=== PATIENT | male | born 1950 | race Caucasian/White ===

== ENCOUNTER → 2018-04-03 11:41 | Outpatient (CLI) | payer BC, MEDICARE, SELFPAY ==
[2018-04-03 17:57] LABS: Basophils % 0.4 % (0.1-2.0); Eosinophils # 0.2 K/mm3 (0.0-0.4); Eosinophils % 2.9 % (0.1-12.0); Hematocrit 41.9 % (42.0-52.0); Hemoglobin 13.5 g/dL (14.1-18.0); Lymphocytes # 1.6 K/mm3 (0.7-4.5); Lymphocytes % 27.3 K/mm3 (10-50); Mean Corpuscular HGB Conc 32.2 g/dL (31.8-35.4); Mean Corpuscular Volume 80.6 fl (80-94); Mean Platelet Volume 7.6 fl (7.4-10.4); Monocytes # 0.3 K/mm3 (0.1-1.0); Monocytes % 5.7 % (1.7-9.3); Neutrophils # 3.8 K/mm3 (1.8-7.8); Neutrophils % 63.7 % (37.0-80.0); Platelet Count 262 K/mm3 (142-424); Red Cell Distribution Width 14.8 % (11.5-17.5); White Blood Count 5.9 K/mm3 (4.8-10.8)
[2018-04-03 19:03] LABS: Hemoglobin A1C 10.1 % (0.0-7.0)
[2018-04-03 20:14] LABS: Alanine Aminotransferase 36 U/L (12-78); Albumin Level 3.5 gm/dL (3.4-5.0); Albumin/Globulin Ratio 0.8 (1.1-1.8); Alkaline Phosphatase 186 U/L (46-116); Aspartate Amino Transferase 23 U/L (15-37); Bilirubin,Total 0.3 mg/dL (0.2-1.0); Blood Urea Nitrogen 19 mg/dL (7-18); Calcium 8.7 mg/dL (8.5-10.1); Carbon Dioxide 29 mmol/L (21.0-32.0); Chloride 100 mmol/L (98-107); Chol/HDL Ratio 5.7 (1-3.5); Cholesterol 216 mg/dL (140-200); Creatinine,Serum 0.87 mg/dL (0.70-1.30); Estimated Glomerular Filt Rate 88 ml/min (>60); GFR (African American) 106 ML/MIN (>60); Globulin 4.2 gm/dl (1.3-3.2); Glucose 301 mg/dL (74-106); HDL Cholesterol 38 mg/dL (27-67); LDL Cholesterol 125 mg/dL (0-130); Sodium 136 mmol/L (136-145); T4 (Thyroxine) 6.8 ug/dl (4.7-13.3); Total Protein,Serum 7.7 gm/dL (6.4-8.2); Triglycerides 266 mg/dL (30-200); VLDL Cholesterol 53 mg/dL (0-40)
[2018-04-05 02:34] LABS: Microalbumin, Urine 169.2 ug/mL (Not Estab.)
[2018-04-06 09:48] LABS: Vitamin D 25 Hydroxy 25.9 ng/mL (30.0-100.0)
== END ==
PROVIDERS: Visit Provider Emergency Medicine
DX: E11.9 Type 2 diabetes mellitus without complications (principal)
CPT/HCPCS: 80053; 80061; 82043; 82652; 83036; 84436; 85025

== ENCOUNTER → 2018-09-18 18:09 | Outpatient (CLI) | payer BC, MEDICARE, SELFPAY ==
[2018-09-18 19:21] LABS: Basophils % 0.4 % (0.1-2.0); Eosinophils # 0.2 K/mm3 (0.0-0.4); Eosinophils % 3.8 % (0.1-12.0); Hematocrit 40.2 % (42.0-52.0); Hemoglobin 12.8 g/dL (14.1-18.0); Lymphocytes # 1.6 K/mm3 (0.7-4.5); Lymphocytes % 27.3 % (10-50); Mean Corpuscular Hemoglobin 25.9 pg (27.0-31.2); Mean Corpuscular Volume 80.8 fl (80-94); Mean Platelet Volume 7.4 fl (7.4-10.4); Monocytes # 0.3 K/mm3 (0.1-1.0); Monocytes % 5.4 % (1.7-9.3); Neutrophils # 3.8 K/mm3 (1.8-7.8); Neutrophils % 63.1 % (37.0-80.0); Platelet Count 313 K/mm3 (142-424); Red Blood Count 4.97 M/mm3 (4.60-6.20); Red Cell Distribution Width 14.8 % (11.5-17.5)
[2018-09-18 19:22] LABS: Alanine Aminotransferase 41 U/L (12-78); Albumin Level 3.4 gm/dL (3.4-5.0); Albumin/Globulin Ratio 0.8 (1.1-1.8); Alkaline Phosphatase 199 U/L (46-116); Anion Gap 14.9 mEq/L (5-15); Aspartate Amino Transferase 16 U/L (15-37); Bilirubin,Total 0.2 mg/dL (0.2-1.0); Blood Urea Nitrogen 14 mg/dL (7-18); Calcium 8.9 mg/dL (8.5-10.1); Carbon Dioxide 24 mmol/L (21.0-32.0); Chloride 102 mmol/L (98-107); Chol/HDL Ratio 5.3 (1-3.5); Cholesterol 187 mg/dL (140-200); Creatinine,Serum 0.84 mg/dL (0.70-1.30); Estimated Glomerular Filt Rate 91 ml/min (>60); Free T4 (Free Thyroxine) 0.84 ng/dl (0.76-1.46); GFR (African American) 111 ML/MIN (>60); Globulin 4.2 gm/dl (1.3-3.2); Glucose 207 mg/dL (74-106); HDL Cholesterol 35 mg/dL (27-67); LDL Cholesterol 105 mg/dL (0-130); Potassium 3.9 mmoL/L (3.5-5.1); Sodium 137 mmol/L (136-145); Thyroid Stimulating Hormone 3.55 uIU/ml (0.358-3.740); Total Protein,Serum 7.6 gm/dL (6.4-8.2); Triglycerides 235 mg/dL (30-200); VLDL Cholesterol 47 mg/dL (0-40)
[2018-09-18 19:56] LABS: Hemoglobin A1C 7.8 % (0.0-7.0)
[2018-09-21 14:00] LABS: Vitamin D 25 Hydroxy 34.7 ng/mL (30.0-100.0)
== END ==
PROVIDERS: Visit Provider Emergency Medicine
DX: F32.9 Major depressive disorder, single episode, unspecified (principal); E11.9 Type 2 diabetes mellitus without complications
CPT/HCPCS: 80053; 80061; 82652; 83036; 84439; 84443; 85025

== ENCOUNTER → 2018-09-26 08:52 | Outpatient (CLI) | payer BC, MEDICARE, SELFPAY ==
[2018-09-28 06:31] LABS: PSA, Free 0.16 ng/mL; Prostate Specific Ag 0.7 ng/mL (0.0-4.0)
== END ==
PROVIDERS: Visit Provider Emergency Medicine
DX: Z12.5 Encounter for screening for malignant neoplasm of prostate (principal); R74.8 Abnormal levels of other serum enzymes
CPT/HCPCS: 36415; 84153; 84154

== ENCOUNTER → 2019-05-28 13:54 | Outpatient (CLI) | payer BC, MEDICARE, SELFPAY ==
[2019-05-28 14:52] LABS: Basophils % 0.4 % (0.1-2.0); Eosinophils # 0.2 K/mm3 (0.0-0.4); Eosinophils % 3.3 % (0.1-12.0); Hematocrit 40.4 % (42.0-52.0); Hemoglobin 12.6 g/dL (14.1-18.0); Lymphocytes # 1.7 K/mm3 (0.7-4.5); Lymphocytes % 27.1 % (10-50); Mean Corpuscular HGB Conc 31.3 g/dL (31.8-35.4); Mean Corpuscular Hemoglobin 24.4 pg (27.0-31.2); Mean Corpuscular Volume 78.1 fl (80-94); Mean Platelet Volume 7.2 fl (7.4-10.4); Monocytes # 0.3 K/mm3 (0.1-1.0); Monocytes % 5.5 % (1.7-9.3); Neutrophils % 63.8 % (37.0-80.0); Platelet Count 305 K/mm3 (142-424); Red Blood Count 5.17 M/mm3 (4.60-6.20); Red Cell Distribution Width 15.2 % (11.5-17.5); White Blood Count 6.3 K/mm3 (4.8-10.8)
[2019-05-28 15:01] LABS: Alanine Aminotransferase 66 U/L (12-78); Albumin Level 3.4 gm/dL (3.4-5.0); Albumin/Globulin Ratio 0.8 (1.1-1.8); Anion Gap 12.2 mEq/L (5-15); Aspartate Amino Transferase 24 U/L (15-37); Bilirubin,Total 0.3 mg/dL (0.2-1.0); Blood Urea Nitrogen 13 mg/dL (7-18); Carbon Dioxide 28 mmol/L (21.0-32.0); Chloride 102 mmol/L (98-107); Cholesterol 179 mg/dL (140-200); Creatinine,Serum 0.88 mg/dL (0.70-1.30); Estimated Glomerular Filt Rate 86 ml/min (>60); GFR (African American) 105 ML/MIN (>60); Globulin 4.3 gm/dl (1.3-3.2); Glucose 223 mg/dL (74-106); Potassium 4.2 mmoL/L (3.5-5.1); Sodium 138 mmol/L (136-145); T4 (Thyroxine) 6.9 ug/dl (4.7-13.3); Thyroid Stimulating Hormone 5.66 uIU/ml (0.358-3.740); Total Protein,Serum 7.7 gm/dL (6.4-8.2); Triglycerides 194 mg/dL (30-200); VLDL Cholesterol 39 mg/dL (0-40)
[2019-05-28 15:22] LABS: Hemoglobin A1C 9.1 % (0.0-7.0)
[2019-05-28 15:35] LABS: Alkaline Phosphatase 218 U/L (46-116); HDL Cholesterol 36 mg/dL (27-67); LDL Cholesterol 104 mg/dL (0-130)
[2019-05-29 10:24] LABS: Creatinine, Urine 174.2 mg/dL (Not Estab.)
[2019-05-30 16:28] LABS: Vitamin D 25 Hydroxy 26.2 ng/mL (30.0-100.0)
[2019-05-30 16:34] LABS: Microalbumin, Urine 696.9 ug/mL (Not Estab.)
[2019-06-02 15:55] LABS: Ferritin 13 ng/mL (8-388)
[2019-06-04 08:14] LABS: Iron 32 ug/dL (38-169); UIBC 381 ug/dL (111-343)
[2019-06-04 09:46] LABS: Iron Saturation 8 % (15-55)
== END ==
PROVIDERS: Visit Provider Emergency Medicine
DX: E11.9 Type 2 diabetes mellitus without complications (principal); Z79.84 Long term (current) use of oral hypoglycemic drugs
CPT/HCPCS: 80053; 80061; 82043; 82570; 82652; 82728; 83036; 83540; 83550; 84436; 84443; 85025

== ENCOUNTER → 2019-08-17 11:01 | Outpatient (CLI) | payer BC, SELFPAY ==
[2019-08-17 11:07] LABS: Microscopic, Urine URINE MICROSCOPIC (MICROSCOPIC)
[2019-08-17 11:59] LABS: Basophils % 0.5 % (0.1-2.0); Eosinophils # 0.3 K/mm3 (0.0-0.4); Hematocrit 46.3 % (42.0-52.0); Hemoglobin 14.4 g/dL (14.1-18.0); Lymphocytes # 1.5 K/mm3 (0.7-4.5); Lymphocytes % 22.4 % (10-50); Mean Corpuscular Hemoglobin 26.3 pg (27.0-31.2); Mean Corpuscular Volume 84.5 fl (80-94); Mean Platelet Volume 7.1 fl (7.4-10.4); Monocytes # 0.3 K/mm3 (0.1-1.0); Monocytes % 4.3 % (1.7-9.3); Neutrophils # 4.6 K/mm3 (1.8-7.8); Neutrophils % 68.7 % (37.0-80.0); Platelet Count 302 K/mm3 (142-424); Red Blood Count 5.48 M/mm3 (4.60-6.20); Red Cell Distribution Width 18.2 % (11.5-17.5); White Blood Count 6.7 K/mm3 (4.8-10.8)
[2019-08-17 14:12] LABS: Appearance,Urine CLEAR (Clear); Bilirubin,Urine Negative (Negative); Blood, Urine Negative (Negative); Color,Urine YELLOW (Yellow); Glucose,Urine (UA) TRACE (Negative); Ketones,Urine Negative (Negative); Leukocyte Esterase,Urine Negative (Negative); Nitrate,Urine Negative (Negative); PH,Urine 5.5 (5.0-8.5); Protein,Urine TRACE (Negative); Specific Gravity, Urine 1.025 (1.005-1.030); Urobilinogen,Urine 0.2 EU/dl (0.2)
[2019-08-17 14:24] LABS: Bacteria,Urine Trace /lpf; Squamous Epithelial Cell,Urine Occasional #/hpf (0-5)
[2019-08-17 14:26] LABS: Albumin Level 3.3 gm/dL (3.4-5.0); Anion Gap 12.2 mEq/L (5-15); Blood Urea Nitrogen 10 mg/dL (7-18); Carbon Dioxide 29 mmol/L (21.0-32.0); Chloride 99 mmol/L (98-107); Creatinine,Serum 0.75 mg/dL (0.70-1.30); Estimated Glomerular Filt Rate 104 ml/min (>60); GFR (African American) 126 ML/MIN (>60); Glucose 174 mg/dL (74-106); Potassium 4.2 mmoL/L (3.5-5.1); Sodium 136 mmol/L (136-145)
[2019-08-17 14:41] LABS: Creatinine,Urine Random 170 mg/dL (20-320); Total Protein,Urine Random 48.4 mg/dL (0.0-11.9)
[2019-08-18 08:07] LABS: Vitamin D 25 Hydroxy 33.6 ng/mL (30.0-100.0)
[2019-08-19 11:07] LABS: Parathyroid Hormone Intact 15 pg/mL (15-65)
== END ==
PROVIDERS: Visit Provider Internal Medicine Nephrology
DX: R80.9 Proteinuria, unspecified (principal)
CPT/HCPCS: 36415; 80069; 81001; 82570; 82652; 83970; 84155; 85025

== ENCOUNTER → 2019-08-19 14:53 | Outpatient (POV) | payer BC, SELFPAY | PROVIDERS: Visit Provider Internal Medicine Nephrology | DX: Z00.00 Encounter for general adult medical examination without abnormal findings (principal) ==

== ENCOUNTER → 2020-08-11 15:17 | Outpatient (CLI) | payer BC, MEDICARE, SELFPAY ==
[2020-08-11 16:39] LABS: Basophils % 0.5 % (0.1-2.0); Eosinophils # 0.3 K/mm3 (0.0-0.4); Eosinophils % 4.6 % (0.1-12.0); Hematocrit 50.2 % (42.0-52.0); Lymphocytes # 1.8 K/mm3 (0.7-4.5); Lymphocytes % 24.2 % (10-50); Mean Corpuscular HGB Conc 33.9 g/dL (31.8-35.4); Mean Corpuscular Hemoglobin 29.3 pg (27.0-31.2); Mean Corpuscular Volume 86.6 fl (80-94); Mean Platelet Volume 8.5 fl (7.4-10.4); Monocytes # 0.3 K/mm3 (0.1-1.0); Monocytes % 4.6 % (1.7-9.3); Neutrophils # 4.9 K/mm3 (1.8-7.8); Platelet Count 266 K/mm3 (142-424); Red Cell Distribution Width 13.5 % (11.5-17.5); White Blood Count 7.4 K/mm3 (4.8-10.8)
[2020-08-11 16:45] LABS: Anion Gap 14.6 mEq/L (5-15); Blood Urea Nitrogen 12 mg/dl (9-20); Carbon Dioxide 28 mmol/L (22.0-30.0); Chloride 99 mmol/L (98-107); Potassium 4.6 mmoL/L (3.5-5.1); Sodium 137 mmol/L (136-145)
[2020-08-11 16:46] LABS: Alanine Aminotransferase 73 U/L (12-78); Albumin/Globulin Ratio 1.1 (1.1-1.8); Alkaline Phosphatase 233 U/L (38-126); Aspartate Amino Transferase 49 U/L (17-59); Bilirubin,Total 0.5 mg/dl (0.2-1.3); Calcium 9.8 mg/dl (8.4-10.2); Chol/HDL Ratio 4.7 (1-3.5); Cholesterol 213 mg/dl (140-200); Estimated Glomerular Filt Rate 112 ml/min (>60); GFR (African American) 136 ML/MIN (>60); Globulin 3.6 g/dL (1.3-3.2); Glucose 249 mg/dl (74-100); HDL Cholesterol 45 mg/dl (40-60); Total Protein,Serum 7.6 g/dl (6.3-8.2); Triglycerides 280 mg/dl (30-150); VLDL Cholesterol 56 mg/dL (0-40)
[2020-08-11 16:56] LABS: Direct LDL Cholesterol 127.17 mg/dL (100-129)
[2020-08-11 17:00] LABS: Hemoglobin A1C 8.5 % (4.0-6.0)
[2020-08-11 17:01] LABS: Free T4 (Free Thyroxine) 0.91 ng/dl (0.78-2.19)
[2020-08-11 17:03] LABS: 25-OH Vitamin D, Total 34.6 ng/mL (30-100)
[2020-08-11 17:18] LABS: Thyroid Stimulating Hormone 3.38 uIU/mL (0.465-4.68)
== END ==
PROVIDERS: Visit Provider Emergency Medicine
DX: E11.9 Type 2 diabetes mellitus without complications (principal); E55.9 Vitamin D deficiency, unspecified; Z79.84 Long term (current) use of oral hypoglycemic drugs
CPT/HCPCS: 80053; 80061; 82306; 83036; 84439; 84443; 85025; G0103

== ENCOUNTER → 2020-08-15 17:09 | Outpatient (CLI) | payer BC, MEDICARE, SELFPAY | PROVIDERS: Visit Provider Emergency Medicine | DX: Z12.5 Encounter for screening for malignant neoplasm of prostate (principal) | CPT/HCPCS: G0103 ==

== ENCOUNTER → 2020-08-24 12:19 | Outpatient (CLI) | payer BC, SELFPAY ==
--- NOTE | 2020-08-24 | CA_ITS ---
APPROVED REPORT Exam: Pharmacologic Technologist: Juanita Marti, Ht: 5 ft 11 in Wt: 312 lbs BSA: 2.55 m2 HR: 63 bpm BP: 149/80 mmHg Rhythm: NSR,FIRST DEGREE AVB,RBBB,CANNOT R/O OLD INF. ME,PVC Medical History Medical History: Diabetic ??? Noninsulin, HTN Medications: Asa,,,,, Pantoprazole,,,,, Iron,,,,, Vit D3,,,,, Vit D2,,,,, GlimepERIDE,,,,, Lisinopri/HCTZ,,,,, VenlaDFAXINE,,,,, Cardiac Risk Factors: HTN, Diabetes (non-insulin), FHX of CAD Stress Test Details Test: LEXISCAN HR Resting HR: 65 bpm Max Heart Rate (APMHR): 152 bpm Max HR Achieved: 79 bpm Target HR (85% APMHR): 129 bpm % of APMHR: 51 Recovery HR: 73 bpm BP Resting BP: 149.0/80.0 mmHg Max BP: 160.0/83.0 mmHg Recovery BP: 157.0/86.0 mmHg ECG Resting ECG: NSR,FIRST DEGREE AVB,RBBB,CANNOT R/O OLD INF. ME, PVC Medications Administered Esmolol ( mg at ) Clinical Exercise duration: 04:03 min Highest Stage Achieved: Stress ECG Conclusion DURING INFUSION OF LEXISCAN PATIENT HAD SOA,MILD NAUSEA AND MALAISE. NO CP. RARE PVC. NO SIGNIFICANT ST-T CHANGES. UNREMARKABLE LEXISCAN STRESS. MYOVIEW IMAGES REPORTED SEPARATELY. Test Summary REST . . . . . . . Sitting REST . . . . . . . Sitting REST 04:18 . . 65 . 149/ 80 . . Stage 1 01:00 . . 68 . . . . Stage 2 01:00 . . 78 . 123/ 68 . . Stage 3 01:00 . . 76 . 144/ 82 . . Stage 4 01:00 . . 72 . 155/ 82 . . Stage 4 01:03 . . 74 . 155/ 82 . Stop exercise at 04:03 RECOVERY 01:00 . . 76 . . . . RECOVERY 02:00 . . 72 . . . . RECOVERY 03:00 . . 71 . . . . RECOVERY 04:00 . . 68 . 147/ 85 . . RECOVERY 04:54 . . 69 . 160/ 83 . . Electronically signed by : Сергей Wyman, 08/25/2020 10:47:19
--- NOTE | 2020-08-24 12:19 | NM_ITS ---
APPROVED REPORT Exam: Nuclear Stress Test Indication: SOB, Obesity, HTN, DM, High cholesterol Patient Location: Outpatient Stress Tech: Ekaterina Kaia [place] Tech:Keyanna Wilson SINDYMarcia RT(R)(N) Ht: 5 ft 11 in Wt: 312 lbs HR: 63 bpm BP: 149/80 mmHg BSA: 2.55 m2 BMI: 43.5 History: SOB, Obesity, HTN, DM, High cholesterol Procedure: Patient received a 0.4 mg of intravenous Lexiscan, resting heart rate 63 bpm, resting blood pressure 149/80 mmHg, with Lexiscan maximum heart rate achived was 79 bpm which is Less than 85 resting electrocardiogram showed sinus rhythm right bundle branch block, % of the maximum predicted heart rate and blood pressure was 123/68 mmHg. With Lexiscan, patient denied any complaint of chest pain. Electrocardiogram With Lexiscan there is less than 1.[address] segment depression noted from the baseline EKG. The EKG portion of the Lexiscan is nondiagnostic. Cardiac Stress and Resting SPECT Images: Cardiac Stress and Resting SPECT images were obtained using technetium 99m Myoview 30.2 mCi stress and 10.71 mCi at rest. Gated SPECT for analysis of segmental wall motion and calculation of the ejection fraction also done. Prone images were also obtained. Cardiac prone images show uniform myocardial activity without segmental perfusion abnormality, computer derived ejection fraction is 40% left ventricle is globally hypokinetic and mildly dilated, right ventricle is mildly enlarged with normal contractility. Conclusion: 1. The EKG portion of the Lexiscan Myoview is nondiagnostic. 2. No scintigraphic evidence of reversible ischemia seen, computer derived ejection fraction 40%, left ventricle is mildly dilated and globally hypokinetic, right ventricle is mildly enlarged with normal contractility. 3. Abnormal Lexiscan Myoview study due to low ejection fraction. Electronically signed by : Сергей Wyman, 08/25/2020 10:50:47
--- NOTE | 2020-08-24 15:00 | CA_ITS ---
APPROVED REPORT EXAM: Comprehensive 2D, Doppler, and color-flow Echocardiogram Wirer Helper: Ashley Reed RVT Ht: 5 ft 11 in Wt: 312lbs BSA: 2.55 BP: 130/80 mmHg Indications: CP,HTN,GERD,SOA,DM,OBESITY 2D Dimensions LVOT 2.68 cm (M/F) 1.5-2.5 M-Mode Dimensions RVDd 4.56 cm (0.9-2.6) LA Diam 4.35 cm (1.9-4.0) LVDd 6.53 cm (3.5-5.7) Ao Diam 4.22 cm (2.0-3.7) LVDs 4.43 cm (3.5-5.7) IVSd 0.58 cm (0.6-1.1) PWd 0.80 cm (0.6-1.1) EF (Teich) 59.20% FS 32.20% EDV (Teich) 218.30 mL ESV (Teich) 89.10 mL LV Diastology E Decel Time 223.00 (160-240 msec) E/A Ratio 0.9 MED E' 4.80 (< 7 cm/sec) E'/MED E' Ratio 15.37 (>14) LAT E' 5.40 (<10 cm/sec) E/LAT E' Ratio 13.67 (>14) Mitral Valve MV E Max Jason. 74.00 (40-130 cm/s) MV A Velocity 82.00 (40-130 cm/s) E/A Ratio 0.90 MV Decel. Time 223.00 (160-240 ms) MV PHT 65.00 ms Pulmonary Valve PV Peak Velocity 81.00 (50-150 cm/s) Left Ventricle Left atrium is mildly enlarged, left ventricle is normal size, mild concentric left ventricular hypertrophy, visually estimated ejection fraction 55% with no regional wall motion abnormality, grade 1 diastolic dysfunction seen with tissue Doppler evidence of raise left atrial pressure. Right Ventricle Right atrium and right ventricle are mildly enlarged with normal contractility. Aortic Valve Aortic valve is minimally thickened and fibrosed, there is no aortic stenosis or aortic insufficiency. Mitral Valve Mitral valve leaflets are minimally thickened, there is mild mitral regurgitation. Tricuspid Valve Tricuspid valve is grossly normal, there is mild tricuspid regurgitation, tricuspid regurgitation jet velocity is inadequate for calculation of the right ventricular systolic pressure. Pulmonic Valve Pulmonic valve is poorly visualized. Great Vessels Aortic root is normal size. Pericardium No significant pericardial effusion noted. Conclusion 1. Mild biatrial enlargement, normal left ventricular size, mild concentric left ventricular hypertrophy, visually estimated ejection fraction 55% with no regional wall motion abnormality, grade 1 diastolic dysfunction seen with tissue Doppler evidence of raise left atrial pressure. 2. Mildly enlarged right ventricle with normal contractility. 3. Mild mitral and tricuspid regurgitation. 4. No significant pericardial effusion noted. Electronically signed by : Сергей Wyman, 08/25/2020 13:19:42
--- NOTE | 2020-08-24 15:05 | HMH.ITSHM ---
Current Home Medications as stated by this patient Van Yvonne or volunteer patient representative. []ASA LISINOPRIL PANTOPRAZOLE
== END ==
LOC: RAD 12:19
PROVIDERS: PCP Emergency Medicine; Visit Provider Emergency Medicine
DX: R07.9 Chest pain, unspecified (principal); R01.1 Cardiac murmur, unspecified
CPT/HCPCS: 78452; 93017; 93306; A9502; J2785

== ENCOUNTER → 2020-09-18 18:05 | Outpatient (CLI) | payer BC, SELFPAY ==
[2020-09-18 19:56] LABS: Coronavirus 19 IgG Antibody Negative (Negative); Coronavirus 19 IgM Antibody Negative (Negative)
== END ==
LOC: COVID.OUT 18:08 → LAB 18:22
PROVIDERS: PCP Emergency Medicine; Visit Provider Emergency Medicine
DX: Z01.818 Encounter for other preprocedural examination (principal); Z03.818 Encounter for observation for suspected exposure to other biological agents ruled out; I10 Essential (primary) hypertension; R40.0 Somnolence; R06.83 Snoring; E66.9 Obesity, unspecified
CPT/HCPCS: 36415; 86328; 95810

== ENCOUNTER 2020-11-22 09:09 | Day surgery (SDC) | payer BC, SELFPAY ==
[2020-11-22] VITALS (12 sets, daily range): BP systolic 99–175; BP diastolic 48–113; PULSE 66–76; RESP 16–20; TEMP 37.2; O2SAT 91–100; BMI 45.4
--- NOTE | 2020-11-22 | IR_ITS ---
APPROVED REPORT Patient Location: Outpatient Balancer: VALE Hummel RT (R) PROCEDURES Left heart catheterization Left ventriculogram Selective coronary angiogram INDICATION Dilated ventricle with cardiomyopathy, Angina pectoris Informed consent was obtained prior to the procedure. COMPLICATIONS none Estimated Blood Loss: less than 10 mls TECHNIQUE One percent lidocaine used to anesthetize the right anterior aspect of the wrist. The right radial artery was accessed via the Seldinger technique. A 6 [place]rugu[place] sheath was placed in the right radial artery. 2.5 mg of verapamil, 800 mcg of nitroglycerin, 1mg Lidocaine and 5000 U Heparin were given through the arterial sheath. The trap catheter and 6 [place]ayan EBU 3.75 guide catheter were used to perform left heart catheterization, left ventriculogram and selective coronary angiogram. At the end of the procedure the sheath was removed good hemostasis was achieved using Traclet band, patient was transferred to the postop holding area in stable condition. ANGIOGRAPHIC RESULTS The left main artery Normal The left anterior descending artery Mild luminal irregularities accompanied by JONATAN II flow The circumflex artery Nondominant with mild luminal irregularities accompanied by JONATAN II flow The right coronary artery Dominant with mild luminal irregularities accompanied by JONATAN II flow The CHEN ventriculogram reveals Dilated ventricle with reduced ejection fraction at 50% The left ventricular end-diastolic pressure Elevated at 30 mmHg IMPRESSION Mild nonflow limiting coronary disease Diffuse slow flow consistent with moderate endothelial dysfunction Dilated ventricle with mildly reduced ejection fraction Severely elevated LVEDP PLAN 1. Lasix 40 daily plus spironolactone 50 mg daily in order to decrease EDP 2. Treatment of endothelial dysfunction possibly with long-acting nitrates if symptoms persist 3. Evaluation for sleep apnea with sleep study Electronically signed by : Odilon Tarango, 11/22/2020 13:25:43
[2020-11-22 10:18] LABS: Chloride 101 mmol/L (98-107); Potassium 3.7 mmoL/L (3.5-5.1); Sodium 135 mmol/L (136-145)
[2020-11-22 10:20] LABS: Basophils % 0.4 % (0.1-2.0); Eosinophils # 0.2 K/mm3 (0.0-0.4); Eosinophils % 3.3 % (0.1-12.0); Hematocrit 48.4 % (42.0-52.0); Hemoglobin 16.3 g/dL (14.1-18.0); Lymphocytes # 1.7 K/mm3 (0.7-4.5); Mean Corpuscular HGB Conc 33.7 g/dL (31.8-35.4); Mean Corpuscular Hemoglobin 28.6 pg (27.0-31.2); Mean Corpuscular Volume 84.9 fl (80-94); Mean Platelet Volume 7.7 fl (7.4-10.4); Monocytes # 0.3 K/mm3 (0.1-1.0); Monocytes % 4.7 % (1.7-9.3); Neutrophils # 4.7 K/mm3 (1.8-7.8); Neutrophils % 67.6 % (37.0-80.0); Platelet Count 242 K/mm3 (142-424); Red Cell Distribution Width 13.4 % (11.5-17.5); White Blood Count 6.9 K/mm3 (4.8-10.8)
[2020-11-22 10:21] LABS: Anion Gap 9.7 mEq/L (5-15); Blood Urea Nitrogen 14 mg/dl (9-20); Calcium 10.2 mg/dl (8.4-10.2); Carbon Dioxide 28 mmol/L (22.0-30.0); Creatinine Clearance Estimated 75 mL/min (50-200); Estimated Glomerular Filt Rate 112 ml/min (>60); GFR (African American) 136 ML/MIN (>60); Glucose 229 mg/dl (74-100)
[2020-11-22 10:45] LABS: Coronavirus 19 IgG Antibody Negative (Negative); Coronavirus 19 IgM Antibody Negative (Negative)
== END 2020-11-22 14:39 | disposition home or self-care (01) ==
PROVIDERS: PCP Emergency Medicine; Visit Provider Internal Medicine
DX: I25.118 Atherosclerotic heart disease of native coronary artery with other forms of angina pectoris (principal); E11.9 Type 2 diabetes mellitus without complications; Z79.84 Long term (current) use of oral hypoglycemic drugs; I11.0 Hypertensive heart disease with heart failure; R94.31 Abnormal electrocardiogram [ECG] [EKG]; Z88.8 Allergy status to other drugs, medicaments and biological substances
CPT/HCPCS: 80048; 85025; 86328; 93458; 99152; C1725; C1769; J1644; Q9967

== ENCOUNTER → 2020-11-30 09:57 | Outpatient (CLI) | payer BC, SELFPAY ==
[2020-11-30 11:36] LABS: Chloride 101 mmol/L (98-107)
[2020-11-30 11:37] LABS: Potassium 4.3 mmoL/L (3.5-5.1); Sodium 136 mmol/L (136-145)
[2020-11-30 11:39] LABS: Alanine Aminotransferase 66 U/L (12-78); Anion Gap 12.3 mEq/L (5-15); Aspartate Amino Transferase 63 U/L (17-59); Bilirubin,Unconjugated 0.3 mg/dL (0.0-1.1); Blood Urea Nitrogen 20 mg/dl (9-20); Carbon Dioxide 27 mmol/L (22.0-30.0); Estimated Glomerular Filt Rate 112 ml/min (>60); GFR (African American) 136 ML/MIN (>60)
[2020-11-30 11:40] LABS: Albumin Level 4.2 g/dl (3.5-5.0); Alkaline Phosphatase 213 U/L (38-126); Bilirubin,Direct 0.1 mg/dl (0.0-0.4); Bilirubin,Indirect 0.3 mg/dL (0.0-0.9); Bilirubin,Total 0.4 mg/dl (0.2-1.3); Calcium 9.9 mg/dl (8.4-10.2); Chol/HDL Ratio 4.9 (1-3.5); Cholesterol 216 mg/dl (140-200); Glucose 250 mg/dl (74-100); HDL Cholesterol 44 mg/dl (40-60); Triglycerides 352 mg/dl (30-150); VLDL Cholesterol 70 mg/dL (0-40)
[2020-11-30 11:47] LABS: NT Pro Brain Natriuretic Pep. 13.1 pg/mL (0-125)
[2020-11-30 11:51] LABS: Direct LDL Cholesterol 118.84 mg/dL (100-129)
== END ==
PROVIDERS: Visit Provider Internal Medicine Cardiovascular Disease
DX: R06.00 Dyspnea, unspecified (principal); I25.10 Atherosclerotic heart disease of native coronary artery without angina pectoris; E11.9 Type 2 diabetes mellitus without complications; E78.5 Hyperlipidemia, unspecified; I51.89 Other ill-defined heart diseases; R94.30 Abnormal result of cardiovascular function study, unspecified; R94.31 Abnormal electrocardiogram [ECG] [EKG]; Z79.84 Long term (current) use of oral hypoglycemic drugs
CPT/HCPCS: 36415; 80048; 80061; 80076; 83880

== ENCOUNTER → 2021-02-02 18:02 | Outpatient (CLI) | payer BC, SELFPAY ==
[2021-02-02 18:41] LABS: Hemoglobin A1C 9.6 % (4.0-6.0)
== END ==
PROVIDERS: Visit Provider Emergency Medicine
DX: E11.9 Type 2 diabetes mellitus without complications (principal); Z79.84 Long term (current) use of oral hypoglycemic drugs
CPT/HCPCS: 83036

== ENCOUNTER 2021-05-14 12:57 | Emergency (ER) | payer BC, SELFPAY ==
[2021-05-14 13:15] VITALS: BP 154/86; PULSE 85; RESP 19; TEMP 36.9; O2SAT 98; BMI 45.2
[2021-05-14 13:24] LABS: Adenovirus,PCR Not Detected (NotDetected); Bordetella Pertussis Not Detected (NotDetected); Chlamydophila Pneumoniae, PCR Not Detected (NotDetected); Coronavirus 229E Not Detected (NotDetected); Coronavirus NL63 Not Detected (NotDetected); Coronavirus OC43 Not Detected (NotDetected); Coronovirus HKU1,PCR Not Detected (NotDetected); Human Metapneumovirus Not Detected (NotDetected); Influenza A, PCR Not Detected (NotDetected); Influenza AH1, 2009 Not Detected (NotDetected); Influenza AH1, PCR Not Detected (NotDetected); Influenza AH3,PCR Not Detected (NotDetected); Influenza B, PCR Not Detected (NotDetected); Mycoplasma Pneumoniae, PCR Not Detected (NotDetected); Parainfluenza 1, PCR Not Detected (NotDetected); Parainfluenza 2, PCR Not Detected (NotDetected); Parainfluenza 3, PCR Not Detected (NotDetected); Parainfluenza 4, PCR Not Detected (NotDetected); Respiratory Syncytial Virus Not Detected (NotDetected); Rhinovirus/Enterovirus Not Detected (NotDetected)
--- NOTE | 2021-05-14 13:32 | HMH.EDUTC ---
[facility] [place] Clinical Impression: Encounter for laboratory testing for COVID-19 virus Disposition: Home, Self-Care Condition on Discharge: Good Instructions: DI for COVID-19 (Suspected or Confirmed ), Coronavirus Disease 2019, Preventing the Spread of Coronavirus Discharge Instructions Additional Instructions: *Monitor Temp, Over the counter Motrin or Tylenol as directed/as needed Tylenol every 4 hours and Motrin every 6 hours (as long as your family doctor has told you that you can take it) for fever or pain. and straight to ER if unable to lower temp less than 101.0 after medication given Follow up IMMEDIATELY for new or worsening symptoms or no Noticeable improvement over the next 48-72 hours. 911 for difficulty breathing or swallowing You were tested for today for COVID19 your test result should be back in the next 24-48 hours, you may call to the [facility] to see if your test results are back in the next 48 hours [phone] [facility] hours are 9am-9pm You was given a handout with instructions for Self Quarantine and Self isolation for while you wait on test results and what to do if they are positive If you are positive the Health Dept will be contacting you also Referrals: Anatoliy Adkins MD [Primary Care Provider] - As needed Time of Disposition: 13:41 Medical Decision Making - Tobin Inquiry Pt receiving controlled substance: No Tobin was queried for this patient: No Vital Signs: 05/14/21 13:15 Temperature 98.5 F Temperature Source Oral Pulse Rate [Right Brachial] 85 Respiratory Rate 19 Blood Pressure [Right Arm] 154/86 H Blood Pressure Mean [Right Arm] 108 Blood Pressure Source [Right Arm] Automatic Cuff Blood Pressure Position [Right Arm] Sitting 02 Sat by Pulse Oximetry 98 Oxygen Delivery Method Room Air Orders (Tests/Meds): ORDERS Category Date Time Status Full Resp Panel w/COVID ([facility]) Routine Lab 05/14/21 13:14 Received [facility] [place] - General Stated complaint: covid exposure, symptoms Time Seen by Provider: 05/14/21 13:32 Mode of Arrival: Ambulatory Source of Information: Patient Limitations: No Limitations Description of Symptoms (Recalled from Triage Doc. by RN): PATIENT C/O COUGH, BODY ACHES, AND CHILLS X 4 DAYS. RECENTLY EXPOSED TO COVID HEENT Symptoms (Recalled from RN notes): Yes Resp Symptoms (Recalled from RN notes): No Skin Symptoms (Recalled from RN notes): No MS Symptoms (Recalled from RN notes): No Functional Status (Recalled from RN notes): WNL - History of Present Illness Provider Complaint: Patient state that he thinks he may have COVID State that his and daughter recently tested positive for COVID States that he has been having flu like symptoms and body aches so he came in to get tested for COVID and flu - Related Data Home Medications Medication Instructions Recorded Confirmed Aspirin [Low Dose Aspirin EC] 81 mg PO DAILY 08/16/19 04/13/21 ferrous sulfate 325 mg (65 mg 325 mg PO DAILY 08/16/19 04/13/21 iron) tablet,delayed release Furosemide [Lasix 40mg tablet] 40 mg PO DAILY 11/22/20 04/13/21 Spironolactone [Aldactone 50mg 50 mg PO DAILY 11/22/20 04/13/21 Tab] ergocalciferol (vitamin D2) 1,250 1,250 mcg PO WEEKLY cap 11/30/20 04/13/21 mcg (50,000 unit) capsule Previous Rx's Medication Instructions Recorded pantoprazole 40 mg tablet,delayed 40 mg PO DAILY #90 tab 10/26/20 release evolocumab 140 mg/mL subcutaneous 140 mg SQ Q2W #2 ml 11/30/20 pen injector metoprolol succinate 25 mg 25 mg PO DAILY #30 tab 11/30/20 tablet,extended release 24 hr glimepiride 4 mg tablet See Rx Instructions .ROUTE 01/30/21 .COMPLEX #90 tab sitagliptin 100 mg tablet 100 mg PO DAILY #30 tab 02/08/21 ergocalciferol (vitamin D2) 1,250 See Rx Instructions .ROUTE 02/16/21 mcg (50,000 unit) capsule .COMPLEX #14 cap venlafaxine 75 mg capsule,extended See Rx Instructions .ROUTE 03/06/21 release 24 hr .COMPLEX #90 cap cholecalciferol (vitamin D3) 25 See Rx
[2021-05-14 13:48] VITALS: BP 154/86; PULSE 85; RESP 19; TEMP 36.9; O2SAT 98
[2021-05-14 16:26] LABS: Coronavirus 19, PCR Detected (NotDetected)
--- NOTE | 2021-05-14 17:17 | PC.NURSE ---
ATTEMPTED TO CALL PT ABOUT COVID TEST RESULTS. NO ANSWER AND NO VOICEMAIL SET UP. WILL TRY AGAIN LATER.
--- NOTE | 2021-05-14 20:14 | PC.NURSE ---
PATIENT'S NOTIFIED OF POSITIVE COVID TEST
== END 2021-05-14 13:54 | disposition home or self-care (01) ==
PROVIDERS: Emergency Provider Nurse Practitioner; PCP Emergency Medicine
DX: U07.1 COVID-19 (principal); I10 Essential (primary) hypertension; E11.9 Type 2 diabetes mellitus without complications; K21.9 Gastro-esophageal reflux disease without esophagitis; Z79.899 Other long term (current) drug therapy
CPT/HCPCS: 87581; 87633; 87798; 99202; G0463

== ENCOUNTER → 2021-07-20 18:24 | Outpatient (CLI) | payer BC, SELFPAY ==
[2021-07-20 19:14] LABS: Hemoglobin A1C 8.5 % (4.0-6.0)
== END ==
PROVIDERS: Visit Provider Emergency Medicine
DX: E11.9 Type 2 diabetes mellitus without complications (principal); Z79.84 Long term (current) use of oral hypoglycemic drugs
CPT/HCPCS: 83036

== ENCOUNTER → 2021-12-14 11:19 | Outpatient (CLI) | payer BC, SELFPAY ==
[2021-12-17 14:00] LABS: Alanine Aminotransferase 23 U/L (12-78); Albumin/Globulin Ratio 1.3 (1.1-1.8); Alkaline Phosphatase 141 U/L (38-126); Anion Gap 13.5 mEq/L (5-15); Aspartate Amino Transferase 28 U/L (17-59); Bilirubin,Total 0.4 mg/dl (0.2-1.3); Blood Urea Nitrogen 16 mg/dl (9-20); Calcium 9.1 mg/dl (8.4-10.2); Carbon Dioxide 24 mmol/L (22.0-30.0); Chloride 103 mmol/L (98-107); Chol/HDL Ratio 4.9 (1-3.5); Cholesterol 175 mg/dl (140-200); Estimated Glomerular Filt Rate 112 ml/min (>60); GFR (African American) 135 ML/MIN (>60); Globulin 3.2 g/dL (1.3-3.2); Glucose 277 mg/dl (74-100); HDL Cholesterol 36 mg/dl (40-60); Potassium 4.5 mmoL/L (3.5-5.1); Sodium 136 mmol/L (136-145); Total Protein,Serum 7.2 g/dl (6.3-8.2); Triglycerides 224 mg/dl (30-150); VLDL Cholesterol 45 mg/dL (0-40)
[2021-12-17 14:04] LABS: Hemoglobin A1C 8.8 % (4.0-6.0)
[2021-12-17 14:11] LABS: Direct LDL Cholesterol 103.12 mg/dL (100-129)
[2021-12-17 14:17] LABS: 25-OH Vitamin D, Total 23.7 ng/mL (30-100); Free T4 (Free Thyroxine) 1.24 ng/dl (0.78-2.19)
[2021-12-17 14:32] LABS: Thyroid Stimulating Hormone 3.74 uIU/mL (0.465-4.68)
== END ==
PROVIDERS: Visit Provider Emergency Medicine
DX: E11.9 Type 2 diabetes mellitus without complications (principal); E55.9 Vitamin D deficiency, unspecified; Z79.4 Long term (current) use of insulin
CPT/HCPCS: 80053; 80061; 82306; 83036; 84439; 84443

== ENCOUNTER → 2022-02-08 16:35 | Outpatient (CLI) | payer BC, SELFPAY ==
[2022-02-08 13:08] LABS: Basophils % 0.7 % (0.1-2.0); Eosinophils # 0.2 K/mm3 (0.0-0.4); Eosinophils % 3.5 % (0.1-12.0); Hematocrit 35.5 % (42.0-52.0); Hemoglobin 11.4 g/dL (14.1-18.0); Lymphocytes # 1.4 K/mm3 (0.7-4.5); Lymphocytes % 21.1 % (10-50); Mean Corpuscular Hemoglobin 21.9 pg (27.0-31.2); Mean Corpuscular Volume 68.5 fl (80-94); Monocytes # 0.3 K/mm3 (0.1-1.0); Monocytes % 4.7 % (1.7-9.3); Neutrophils # 4.5 K/mm3 (1.8-7.8); Platelet Count 306 K/mm3 (142-424); Red Blood Count 5.19 M/mm3 (4.60-6.20); Red Cell Distribution Width 17.3 % (11.5-17.5); White Blood Count 6.5 K/mm3 (4.8-10.8)
[2022-02-08 13:13] LABS: Chloride 104 mmol/L (98-107); Potassium 3.9 mmoL/L (3.5-5.1); Sodium 137 mmol/L (136-145)
[2022-02-08 13:15] LABS: Alanine Aminotransferase 21 U/L (12-78); Amylase 33 U/L (30-110); Aspartate Amino Transferase 25 U/L (17-59); Blood Urea Nitrogen 11 mg/dl (9-20); Estimated Glomerular Filt Rate 134 ml/min (>60); GFR (African American) 162 ML/MIN (>60)
[2022-02-08 13:16] LABS: Albumin Level 3.8 g/dl (3.5-5.0); Albumin/Globulin Ratio 1.2 (1.1-1.8); Alkaline Phosphatase 113 U/L (38-126); Anion Gap 9.9 mEq/L (5-15); Bilirubin,Total 0.5 mg/dl (0.2-1.3); Calcium 9.3 mg/dl (8.4-10.2); Carbon Dioxide 27 mmol/L (22.0-30.0); Globulin 3.1 g/dL (1.3-3.2); Glucose 233 mg/dl (74-100); Lipase 53 U/L (23-300); Total Protein,Serum 6.9 g/dl (6.3-8.2)
[2022-02-08 13:21] LABS: C-Reactive Protein 4.8 mg/L (0-4)
[2022-02-08 16:48] LABS: Erythrocyte Sedimentation Rate 17 mm/hr (0-20)
== END ==
PROVIDERS: Visit Provider Emergency Medicine
DX: E66.9 Obesity, unspecified (principal); R10.9 Unspecified abdominal pain; Z68.41 Body mass index [BMI] 40.0-44.9, adult
CPT/HCPCS: 80053; 82150; 83690; 85025; 85651; 86140

== ENCOUNTER → 2022-03-08 16:06 | Outpatient (CLI) | payer BC, SELFPAY ==
[2022-03-08 14:46] LABS: Hemoglobin A1C 8.9 % (4.0-6.0)
[2022-03-08 15:08] LABS: Vitamin B12 224 pg/mL (239-931)
[2022-03-08 15:48] LABS: Iron 25 ug/dL (49-181)
[2022-03-08 15:57] LABS: Total Iron Binding Capacity 454 ug/dL (261-462)
[2022-03-08 16:24] LABS: Ferritin 6.32 ng/ml (17.9-464)
== END ==
PROVIDERS: Visit Provider Emergency Medicine
DX: E11.9 Type 2 diabetes mellitus without complications (principal); Z79.4 Long term (current) use of insulin
CPT/HCPCS: 82607; 82728; 83036; 83540; 83550

== ENCOUNTER 2022-06-01 08:12 | Emergency (ER) | payer BC, SELFPAY ==
[2022-06-01 08:20] VITALS: BP 165/64; PULSE 53; RESP 18; TEMP 36.7; O2SAT 98; BMI 41.1
--- NOTE | 2022-06-01 09:05 | HMH.EDUTC ---
[facility] [place]ression: Bakers cyst Qualifiers: Laterality: right Qualified Code(s): M71.21 - Synovial cyst of popliteal space [Wesley], right knee Disposition: Home, Self-Care Condition on Discharge: Good Instructions: DI for Wesley Cyst Additional Instructions: follow up with ortho follow up with pcp monitor glucose while on steroids if symptoms worsen return or be seen in ed Referrals: Anatoliy Adkins MD [Primary Care Provider] - Time of Disposition: 10:38 Medical Decision Making - Tobin Inquiry Pt receiving controlled substance: No Vital Signs: 06/01/22 08:20 06/01/22 09:09 Temperature 98.0 F 98.0 F Temperature Source Oral Pulse Rate 53 L Pulse Rate [Right Brachial] 53 L Respiratory Rate 18 18 Blood Pressure 165/64 H Blood Pressure [Right Arm] 165/64 H Blood Pressure Mean [Right Arm] 97 Blood Pressure Source [Right Arm] Automatic Cuff Blood Pressure Position [Right Arm] Sitting 02 Sat by Pulse Oximetry 98 Oxygen Delivery Method Room Air [facility] [place] - General Chief complaint: Urgent [facility] Stated complaint: Pain in RT leg Time Seen by Provider: 06/01/22 09:07 Mode of Arrival: Ambulatory Source of Information: Patient Limitations: No Limitations Description of Symptoms (Recalled from Triage Doc. by RN): PATIENT C/O RIGHT LEG PAIN X 1 WEEK, BUT STARTED HURTING WORSE YESTERDAY. HE REPORTS THE PAIN BEING MAINLY IN HIS CALF, AND AT TIMES RADIATES INTO THIGH. NO KNOWN INJURY HEENT Symptoms (Recalled from RN notes): No Resp Symptoms (Recalled from RN notes): No Skin Symptoms (Recalled from RN notes): No MS Symptoms (Recalled from RN notes): Yes Functional Status (Recalled from RN notes): WNL - History of Present Illness Provider Complaint: 72 yr old male presents for pain in rt calf. pt states the pain starts in his calf and radiates up leg and now pain worse with walking. pt states [place] and [place] 8 hours to work. - Related Data Home Medications Medication Instructions Recorded Confirmed Aspirin [Low Dose Aspirin EC] 81 mg PO DAILY 08/16/19 03/08/22 Previous Rx's Medication Instructions Recorded evolocumab 140 mg/mL subcutaneous 140 mg SQ Q2W #2 ml 11/30/20 pen injector metoprolol succinate 25 mg 25 mg PO DAILY #30 tab 11/30/20 tablet,extended release 24 hr glimepiride 4 mg tablet See Rx Instructions .ROUTE 01/30/21 .COMPLEX #90 tab sitagliptin 100 mg tablet See Rx Instructions .ROUTE 05/28/21 .COMPLEX #90 tab canagliflozin 300 mg tablet 300 mg PO DAILY #30 tab 07/31/21 metformin 1,000 mg tablet 1,000 mg PO BID #60 tab 07/31/21 hydrochlorothiazide 25 mg tablet 25 mg PO DAILY #90 tab 10/02/21 venlafaxine 75 mg capsule,extended See Rx Instructions .ROUTE 10/24/21 release 24 hr .COMPLEX #90 cap pantoprazole 40 mg tablet,delayed 40 mg PO DAILY #90 tab 12/14/21 release insulin glargine 100 unit/mL (3 10 unit SQ HS #15 ml 01/03/22 mL) subcutaneous pen cefdinir 300 mg capsule 300 mg PO BID #20 cap 02/08/22 metronidazole 500 mg tablet 500 mg PO TID #30 tab 02/08/22 cholecalciferol (vitamin D3) 25 See Rx Instructions .ROUTE 03/19/22 mcg (1,000 unit) capsule .COMPLEX #30 each ergocalciferol (vitamin D2) 1,250 1,250 mcg PO WEEKLY #12 cap 03/19/22 mcg (50,000 unit) capsule peg 3350-electrolytes 236 240 ml PO Q10M #4000 ml 05/14/22 gram-22.74 gram-6.74 gram-5.86 gram solution lisinopril 40 mg tablet 40 mg PO DAILY #90 tab 05/31/22 Allergies Allergy/AdvReac Type Severity Reaction Status Date / Time atorvastatin [From Lipitor] AdvReac Severe Verified 03/08/22 10:45 rosuvastatin [From Crestor] AdvReac Severe Verified 03/08/22 10:45 - Worker's Comp Is this a Worker's Comp case?: No [facility] History - Hepatitis A Screen Attestation statement:: This patient has been screened for Hepatitis A risk factors. I have reviewed the patient's past medical history: Yes Medical History: Reports:: Diabetes Mellitus Type 2, Gas
[2022-06-01 09:09] VITALS: BP 165/64; PULSE 53; RESP 18; TEMP 36.7; O2SAT 98
--- NOTE | 2022-06-01 10:00 | CA_ITS ---
FINAL REPORT TECHNIQUE: Right lower extremity venous duplex was performed with augmentation and compression. CLINICAL HISTORY: pain,decrease pulse, driving in car for 8 hours FINDINGS: Proper flow is seen throughout the deep venous system. There is no evidence of deep venous thrombosis. There is a 2 cm Wesley's cyst. IMPRESSION: No deep venous thrombosis in the right lower extremity. Reviewed, Interpreted and Dictated by Aba Lopez MD Transcribed by Sylvie Barone Authenticated and [facility]
== END 2022-06-01 10:51 | disposition home or self-care (01) ==
PROVIDERS: Emergency Provider Nurse Practitioner Family; PCP Emergency Medicine
DX: M66.0 Rupture of popliteal cyst (principal)
CPT/HCPCS: 93971; 96372; 99213; G0463

== ENCOUNTER → 2022-06-21 11:27 | Outpatient (CLI) | payer BC, MEDICARE, SELFPAY ==
--- NOTE | 2022-06-21 11:37 | XR_ITS ---
FINAL REPORT CLINICAL HISTORY: knee pain FINDINGS: Three views of the right knee reveal no evidence of acute fracture or dislocation. There is chronic deformity of the distal femur consistent with a chronic fracture. There are mild degenerative changes. There is no evidence of joint effusion. No localized soft tissue abnormality is identified. IMPRESSION: Mild degenerative change. Reviewed, Interpreted and Dictated by Geoff Liu III, MD Transcribed by Jeffery Zuniga Authenticated and [facility]
== END ==
PROVIDERS: PCP Emergency Medicine; Visit Provider Orthopaedic Surgery
DX: M25.561 Pain in right knee (principal)
CPT/HCPCS: 73562

== ENCOUNTER → 2022-07-26 14:47 | Outpatient (CLI) | payer MEDICARE, SELFPAY ==
[2022-07-26 14:21] LABS: Basophils % 0.6 % (0.1-2.0); Eosinophils # 0.3 K/mm3 (0.0-0.4); Eosinophils % 3.8 % (0.1-12.0); Hematocrit 37.8 % (42.0-52.0); Hemoglobin 12.5 g/dL (14.1-18.0); Lymphocytes # 1.5 K/mm3 (0.7-4.5); Lymphocytes % 22.6 % (10-50); Mean Corpuscular HGB Conc 32.9 g/dL (31.8-35.4); Mean Corpuscular Hemoglobin 24.9 pg (27.0-31.2); Mean Corpuscular Volume 75.6 fl (80-94); Mean Platelet Volume 8.3 fl (7.4-10.4); Monocytes # 0.3 K/mm3 (0.1-1.0); Neutrophils # 4.6 K/mm3 (1.8-7.8); Neutrophils % 68.1 % (37.0-80.0); Platelet Count 264 K/mm3 (142-424); Red Cell Distribution Width 16.5 % (11.5-17.5); White Blood Count 6.8 K/mm3 (4.8-10.8)
[2022-07-26 14:24] LABS: Alanine Aminotransferase 65 U/L (12-78); Albumin Level 3.5 g/dl (3.5-5.0); Albumin/Globulin Ratio 1.1 (1.1-1.8); Alkaline Phosphatase 266 U/L (38-126); Anion Gap 15.3 mEq/L (5-15); Aspartate Amino Transferase 48 U/L (17-59); Bilirubin,Total 0.2 mg/dl (0.2-1.3); Blood Urea Nitrogen 13 mg/dl (9-20); Calcium 8.7 mg/dl (8.4-10.2); Carbon Dioxide 27 mmol/L (22.0-30.0); Chloride 100 mmol/L (98-107); Chol/HDL Ratio 4.5 (1-3.5); Cholesterol 176 mg/dl (140-200); Estimated Glomerular Filt Rate 133 ml/min (>60); GFR (African American) 161 ML/MIN (>60); Globulin 3.1 g/dL (1.3-3.2); Glucose 215 mg/dl (74-100); HDL Cholesterol 39 mg/dl (40-60); Potassium 4.3 mmoL/L (3.5-5.1); Sodium 138 mmol/L (136-145); Total Protein,Serum 6.6 g/dl (6.3-8.2); Triglycerides 165 mg/dl (30-150); VLDL Cholesterol 33 mg/dL (0-40)
[2022-07-26 14:35] LABS: Direct LDL Cholesterol 110.57 mg/dL (100-129)
[2022-07-26 14:41] LABS: 25-OH Vitamin D, Total 26.6 ng/mL (30-100)
[2022-07-26 14:46] LABS: Creatinine,Urine Random 34 mg/dL (Not Estab.); Hemoglobin A1C 9.1 % (4.0-6.0); Microalbumin/Creatinine Ratio 909.4
[2022-07-26 14:54] LABS: Thyroid Stimulating Hormone 3.86 uIU/mL (0.465-4.68)
== END ==
PROVIDERS: PCP Student in an Organized Health Care Education/Training Program; Visit Provider Student in an Organized Health Care Education/Training Program
DX: E11.9 Type 2 diabetes mellitus without complications (principal); I10 Essential (primary) hypertension; E55.9 Vitamin D deficiency, unspecified; Z79.4 Long term (current) use of insulin
CPT/HCPCS: 80053; 80061; 82043; 82306; 82570; 83036; 84443; 85025

== ENCOUNTER → 2023-07-31 07:20 | Outpatient (CLI) | payer MEDICARE, SELFPAY ==
--- NOTE | 2023-07-31 07:20 | NM_ITS ---
APPROVED REPORT Exam: Nuclear Stress Test Indication: chest pain..soa..fatigue..high bp..daibetes Patient Location: Outpatient Stress Tech: Shelby Houston [place] Tech:VALE Patton RT(R)(N) Ht: 5 ft 11 in Wt: 310 lbs HR: 68 bpm BP: 167/89 mmHg BSA: 2.54 m2 Rhythm: NSR TID: 1.22 BMI: 43.2 History: chest pain..soa..fatigue, hypertension, diabetes Procedure: Patient received 0.4 mg of intravenous Lexiscan, resting heart rate 68 bpm, resting blood pressure 167/89 mmHg, with Lexiscan maximum heart rate achieved was 75 bpm which is 85 % of the maximum predicted heart rate and blood pressure was 167/89 mmHg. With Lexiscan, patient denied any complaint of chest pain. The patient was not able to lay on his abdomen for prone imaging. Resting and stress imaging in supine position demonstrate a large sized, moderate, Cardiac Stress and Resting SPECT Images: Cardiac Stress and Resting SPECT images were obtained using technetium 99m Myoview 32.9 mCi stress and 10.97 mCi at rest. The patient could not lie on his abdomen. Therefore, prone stress imaging could not be performed. This may affect the diagnostic interpretation of the study findings. Resting and stress imaging in supine positions demonstrate a large sized, moderate, partially reversible perfusion defect in the inferior and inferolateral LV kelley. There is increased transient ischemic dilatation ratio (TID 1.22), suggestive of multivessel disease or balanced ischemia. Gated imaging demonstrates mild reduction in global LV systolic function. There is moderate hypokinesis of the basal inferior LV wall. LVEF is calculated at 49%. Conclusion: Large sized, moderate, partially reversible perfusion defect in the inferior and inferolateral LV kelley. Findings are suggestive of partial reversible ischemia. There is increased transient ischemic dilatation ratio (TID 1.22), suggestive of multivessel disease or balanced ischemia. Gated imaging demonstrates mild reduction in global LV systolic function. There is moderate hypokinesis of the basal inferior LV wall. LVEF is calculated at 49%. Electronically signed by : Genet Keith MD 08/03/2023 22:24:21
--- NOTE | 2023-07-31 08:34 | CA_ITS ---
APPROVED REPORT EXAM: Comprehensive 2D, Doppler, and color-flow Echocardiogram Assembler Ping Pong Table: Ashley Reed RVT Ht: 5 ft 11 in Wt: 310lbs BSA: 2.54 BP: 186/88 mmHg Indications: SOA,ABN EKG,CP,DM,HTN,HLD,FATIGUE,OBESITY TDS-PT BODY HABITUS 2D Dimensions LVOT 2.42 cm (M/F) 1.5-2.5 LA Volume 82.30 mL LA Volume Index 32.40 mL/m2 (M/F) 16-34 M-Mode Dimensions RVDd 5.50 cm (0.9-2.6) LA Diam 4.10 cm (1.9-4.0) LVDd 5.32 cm (3.5-5.7) Ao Diam 4.33 cm (2.0-3.7) LVDs 3.76 cm (3.5-5.7) IVSd 1.52 cm (0.6-1.1) PWd 1.12 cm (0.6-1.1) EF (Teich) 55.80% FS 29.30% EDV (Teich) 136.50 mL ESV (Teich) 60.40 mL LV Diastology E Decel Time 150.00 (160-240 msec) E/A Ratio 0.9 MED E' 4.40 (< 7 cm/sec) E'/MED E' Ratio 19.82 (>14) LAT E' 5.60 (<10 cm/sec) E/LAT E' Ratio 15.57 (>14) Aortic Valve AO Peak GR. 9.00 mmHg Mitral Valve MV E Max Jason. 87.00 (40-130 cm/s) MV A Velocity 102.00 (40-130 cm/s) E/A Ratio 0.85 MV Decel. Time 150.00 (160-240 ms) MV PHT 44.00 ms Pulmonary Valve PV Peak Velocity 81.00 (50-150 cm/s) Left Ventricle The left ventricle is normal size. The left ventricular systolic function is normal. The left ventricular ejection fraction is within the normal range. There is increased LV wall thickness. The septum is asynchronous. No other regional wall motion abnormalities are noted. Diastolic function is indeterminate. LVEF is 55%. Right Ventricle The right ventricle is mildly dilated. The right ventricular systolic function is normal. Atria The left atrium size is normal. The right atrium size is normal. There is no Doppler evidence of interatrial shunt. Aortic Valve The aortic valve is mildly thickened. There is no aortic valvular stenosis. Trace aortic regurgitation. Mitral Valve The mitral valve leaflets are mildly thickened. No evidence of mitral valve stenosis. Trace mitral regurgitation. Tricuspid Valve The tricuspid valve leaflets are thin and pliable. Trace tricuspid regurgitation. There is insufficient TR jet to estimate RVSP. Pulmonic Valve The pulmonary valve is normal in structure. Trace pulmonic regurgitation. Great Vessels The aortic root is normal in size. The ascending aorta is normal in size. IVC is normal in size and collapses >50% with inspiration. Other Information Study Quality: Fair Conclusion Normal biventricular systolic function. Mild RV dilation. Asynchronous septum. No significant valvular stenosis or regurgitation. Electronically signed by : Genet Keith MD 08/02/2023 21:54:27
--- NOTE | 2023-07-31 08:57 | CA_ITS ---
APPROVED REPORT Exam: Pharmacologic Technologist: Shelby Calles, Ht: 5 ft 11 in Wt: 310 lbs BSA: 2.54 m2 HR: 62 bpm BP: 167/89 mmHg Rhythm: NSR Medical History Medications: Amlodipine,,,,, Aspirin,,,,, Trazadone,,,,, Pantoprazole,,,,, Metoprolol Succinate,,,,, Glimepiride,,,,, Vit D3,,,,, Venlafaxine,,,,, SilDENAFIL,,,,, Vit D2,,,,, Evolocumab,,,,, INSULIN GLARGINE,,,,, Stress Test Details Test: LEXISCAN Reason for pharmacologic stress test: physical limitation. HR Resting HR: 68 bpm Max Heart Rate (APMHR): 149 bpm Max HR Achieved: 75 bpm Target HR (85% APMHR): 127 bpm % of APMHR: 50 Recovery HR: 71 bpm BP Resting BP: 167.0/89.0 mmHg Max BP: 167.0/89.0 mmHg Recovery BP: 161.0/94.0 mmHg ECG Resting ECG: NSR, first-degree AVB, RBBB, PVC, PAC, cannot R/O old inferior MT Stress ECG: No significant ST changes Arrhythmia: PACs, PVCs Clinical Exercise duration: 03:50 min Highest Stage Achieved: Exercise capacity: 1.0 METs Stress ECG Conclusion Symptoms: mild head discomfort. No CP. Arrhythmias/Ectopy: Occasional PAC, PVC ST-T Changes: No significant ST changes. Conclusion: Unremarkable Lexiscan stress. Myoview images reported separately. Test Summary REST . . . . . . . Resting REST 04:56 . . 68 . 167/ 89 . . Stage 1 01:00 . . 73 . . . . Stage 2 01:00 . . 72 . . . . Stage 3 01:00 . . 70 . 154/ 84 . . Stage 4 00:50 . . 70 . 162/ 86 . Stop exercise at 03:50 RECOVERY 01:00 . . 72 . 162/ 81 . . RECOVERY 02:00 . . 69 . 162/ 81 . . RECOVERY 03:00 . . 71 . 162/ 81 . . RECOVERY 03:22 . . 70 . 161/ 94 . . Electronically signed by : Genet Keith MD 08/03/2023 22:20:47
== END ==
LOC: RAD 07:20
PROVIDERS: PCP Emergency Medicine; Visit Provider Nurse Practitioner
DX: E78.5 Hyperlipidemia, unspecified (principal); I10 Essential (primary) hypertension; I25.10 Atherosclerotic heart disease of native coronary artery without angina pectoris; I51.89 Other ill-defined heart diseases; R60.0 Localized edema; R94.30 Abnormal result of cardiovascular function study, unspecified; R94.31 Abnormal electrocardiogram [ECG] [EKG]; R06.09 Other forms of dyspnea
CPT/HCPCS: 78452; 93017; 93306; A9502; J2785

== ENCOUNTER 2023-08-02 17:34 | Emergency (ER) | payer MEDICARE, SELFPAY ==
[2023-08-02 17:35] VITALS: BP 169/96; PULSE 87; RESP 18; TEMP 36.8; O2SAT 98; BMI 43.2
--- NOTE | 2023-08-02 17:47 | EXP.UTC ---
Discharge Plan Disposition Patient Disposition: Home, Self-Care Condition: Good Prescriptions Prescriptions: New azithromycin 250 mg tablet See Rx Instructions .ROUTE .COMPLEX Qty: 6 0RF Rx Instructions: For 250 mg dose pack: take 500 mg today (day 1), then 250 mg for 4 days (days 2-5). Stop cholesterol medication while taking this medication. benzonatate 200 mg capsule 200 mg PO TID PRN (Reason: cough) Qty: 30 0RF No Action sildenafil (pulm.hypertension) 20 mg tablet See Rx Instructions .ROUTE .COMPLEX Qty: 20 2RF Rx Instructions: Take 1 to 2 po as needed; cholecalciferol (vitamin D3) 25 mcg (1,000 unit) capsule See Rx Instructions .ROUTE .COMPLEX Qty: 30 2RF Dose Instruction: TAKE ONE CAPSULE BY MOUTH DAILY Rx Instructions: TAKE ONE CAPSULE BY MOUTH DAILY insulin glargine [Lantus Solostar U-100 Insulin] 100 unit/mL (3 mL) insulin pen 10 unit SQ HS Qty: 15 2RF pantoprazole 40 mg tablet,delayed release (DR/EC) 40 mg PO DAILY Qty: 90 3RF losartan-hydrochlorothiazide 100-25 mg tablet 1 tab PO DAILY Qty: 30 3RF Repatha SureClick 140 mg/mL pen injector 140 mg SQ Q2W Qty: 2 5RF glimepiride 4 mg tablet See Rx Instructions .ROUTE .COMPLEX Qty: 90 0RF Dose Instruction: TAKE 1 TABLET BY MOUTH ONCE A DAY WITH BREAKFAST. Rx Instructions: TAKE 1 TABLET BY MOUTH ONCE A DAY WITH BREAKFAST. trazodone 50 mg tablet See Rx Instructions .ROUTE .COMPLEX Qty: 30 1RF Dose Instruction: TAKE ONE TABLET BY MOUTH NIGHTLY AT BEDTIME Rx Instructions: TAKE ONE TABLET BY MOUTH NIGHTLY AT BEDTIME metoprolol succinate 25 mg tablet extended release 24 hr See Rx Instructions .ROUTE .COMPLEX Qty: 30 5RF Dose Instruction: TAKE ONE TABLET BY MOUTH DAILY Rx Instructions: TAKE ONE TABLET BY MOUTH DAILY Clenpiq 10 mg-3.5 gram- 12 gram/175 mL solution 175 ml PO DAILY Qty: 350 0RF Rx Instructions: take first dose at 5-9PM evening before colonoscopy; 2nd dose the next day approximately 5 hrs before colonoscopy peg 3350-electrolytes [Golytely] 236-22.74-6.74 -5.86 gram recon soln 240 ml PO Q10M Qty: 4000 0RF Rx Instructions: until fecal effluent is clear venlafaxine 75 mg capsule,extended release 24hr See Rx Instructions .ROUTE .COMPLEX Qty: 90 0RF Dose Instruction: Take 1 capsule at bedtime for Anxiety Rx Instructions: Take 1 capsule at bedtime for Anxiety ergocalciferol (vitamin D2) 1,250 mcg (50,000 unit) capsule See Rx Instructions .ROUTE .COMPLEX Qty: 12 0RF Dose Instruction: TAKE 1 CAPSULE BY MOUTH WEEKLY Rx Instructions: TAKE 1 CAPSULE BY MOUTH WEEKLY amlodipine 5 mg tablet See Rx Instructions .ROUTE .COMPLEX Qty: 30 0RF Dose Instruction: TAKE 1 TABLET BY MOUTH DAILY Rx Instructions: TAKE 1 TABLET BY MOUTH DAILY potassium chloride 10 mEq tablet,ER particles/crystals See Rx Instructions .ROUTE .COMPLEX Qty: 90 0RF Dose Instruction: TAKE 1 TABLET BY MOUTH DAILY Rx Instructions: TAKE 1 TABLET BY MOUTH DAILY aspirin 81 mg tablet,delayed release (DR/EC) See Rx Instructions .ROUTE .COMPLEX Qty: 90 0RF Dose Instruction: TAKE 1 TABLET BY MOUTH EVERY DAY Rx Instructions: TAKE 1 TABLET BY MOUTH EVERY DAY lisinopril 40 mg tablet 40 mg PO DAILY Referrals Follow up/Referrals: Anatoliy Adkins MD [Primary Care Provider] - See instructions Activity Restrictions/Add. Instructions Additional Instructions/Restrictions: Take medication as prescribed. Take allergy medication daily. If symptoms persist or worsen, follow up with PCP or return to the [facility]. Clinical Impressions Clinical Impression: Upper respiratory tract infection Qualifiers: URI type: unspecified URI Qualified Code(s): J06.9 - Acute upper respiratory infection, unspecified Instructions Patient Instructions: DI for Viral Upper Respiratory Infe
[2023-08-02 18:10] VITALS: BP 169/96; PULSE 87; RESP 18; TEMP 36.8; O2SAT 98
== END 2023-08-02 18:09 | disposition home or self-care (01) ==
PROVIDERS: Emergency Provider Nurse Practitioner Family; PCP Emergency Medicine
DX: R05.1 Acute cough (principal); J06.9 Acute upper respiratory infection, unspecified; I11.9 Hypertensive heart disease without heart failure; I25.10 Atherosclerotic heart disease of native coronary artery without angina pectoris; E11.9 Type 2 diabetes mellitus without complications; E78.5 Hyperlipidemia, unspecified; G47.30 Sleep apnea, unspecified; E55.9 Vitamin D deficiency, unspecified; F41.9 Anxiety disorder, unspecified; F32.A Depression, unspecified; Z79.4 Long term (current) use of insulin
CPT/HCPCS: 99212; 99214; G0463

== ENCOUNTER 2023-10-17 08:07 | Day surgery (SDC) | payer MEDICARE, SELFPAY ==
[2023-10-15 10:06] VITALS: BMI 43.4
[2023-10-17] VITALS (13 sets, daily range): BP systolic 135–183; BP diastolic 69–103; PULSE 53–85; RESP 16–18; TEMP 36.1–36.6; O2SAT 95–100
--- NOTE | 2023-10-17 08:41 | HMH.SCOPE ---
Procedure: Date: 10/17/23 Patient Date of :: 1950 Procedure Performed:: Total colonoscopy to terminal ileum with endoscopic removal of polypoid mass in sigmoid colon Indications:: Patient is a 73-year-old male with a history of anxiety, depression, coronary artery disease, hyperlipidemia, GERD, obstructive sleep apnea, diabetes. He has a BMI of 44. He has had 3 prior colonoscopies. I had done last colonoscopy on 08/17/2019 at which time he had some diverticulosis without polyps. Apparently patient has had some left sided abdominal and left upper quadrant pain reportedly. He was seen in Dr. Adkins's office in June 2023 and has had these complaints of pain and was therefore scheduled for colonoscopy. There are no exacerbating or alleviating symptoms. He has not undergone any imaging for this. Patient was given Clenpiq. He states that this did not begin working until shortly before arrival for his procedure. Performing Provider:: Geoff Tovar MD Referring Provider:: Lian Arizmendi Sedation:: MAC sedation Procedure:: Patient history was obtained and appropriate physical examination was performed. Patient's medications and allergies were reviewed. Informed consent was obtained after explaining the benefits, alternatives, and risks of the procedure including, but not limited to, bleeding, perforation, missed lesions, and adverse reaction to anesthesia medications. Patient was transported to endoscopy procedure room. Patient was connected to monitoring devices. Throughout the procedure the patient's blood pressure, pulse, and oxygen saturations were monitored continuously. Patient identification and planned procedure were verified by the staff. Patient was positioned in lateral decubitus position. Digital anorectal exam was performed. Variable stiffness Olympus colonoscope was inserted and advanced under direct visualization to the cecum. Adequacy of the colonic preparation was noted. The colonoscope was advanced a short distance into the terminal ileum. The colonoscope was then slowly withdrawn while carefully examining the color, texture, anatomy, and integrity of the mucosoa circumferentially. Within the rectum retroflexion was performed. Colonoscope was then withdrawn. . Colonoscope was advanced to the cecum ultimately with some abdominal pressure as there was some redundancy of the sigmoid colon. Colonic preparation was poor. Initially upon advancement of the colonoscope consideration was being given for possible /termination of the procedure due to the poor prep. However there was noted to be a polypoid mass in the sigmoid colon. This was located at a site of sharp angulation of the sigmoid colon obscuring its visualization. Therefore effort was made to advance the colonoscope to the cecum and into the terminal ileum. It was slowly withdrawn through the colon. Visualization was poor due to the suboptimal preparation. However in the sigmoid colon at approximately 45 cm from the anal verge there was a large friable polypoid mass like lesion. Using a large 30 mm hot snare a large portion of this was able to be excised from the remainder of the base of the polypoid lesion and grasped with Colvin net. It was withdrawn. Size of this portion of the lesion measured at least 30 mm. Colonoscope was then reinserted. Prolonged procedure was carried out removing what appeared to be the remainder of the surrounding polypoid tissue initially using the 30 mm hot snare followed by the 13 mm hot snare and ultimately with residual tissue removed using the 9 mm cold snare. Much of this was suctioned free and some of it was withdrawn as the colonoscope was withdrawn and then reinserted repeatedly. It appeared as though the polyp was potentially removed in its entirety to normal surrounding mucosa but this was unclear due to the edema from cautery. Ijeoma ink was used and injected on each side of the polypectomy site laterally to gisselle this for future reference pending the pathology. Hemoclip was deployed centrally within the polypectomy cautery site. There was some sigmoid diverticulosis. Within the rectum retroflexion was performed but there was a large amount of stool present and visualization was suboptimal. Colonoscope was withdrawn. . Findings:: Poor preparation Sigmoid diverticulosis Polypoid mass and sharp angulation of the sigmoid colon at 45 cm Recommendations:: Plan to follow-up on his histopathology. If benign likely will need repeat colonoscopy to ensure complete removal in several months. Of course if he has cancerous component will need definitive cancer operation. This may be best served laparoscopically at a tertiary facility given the nature and details of the comorbidities. Complications:: None immediately apparent Estimated blood obtained (mL): 5 Colonoscopy Component Colonoscopy Component Was a colonoscopy performed during today's procedure?: Yes Recommended follow up colonoscopy of at least 10 years?: No If no, follow up colonoscopy recommended in ___ years?: See above Reason for not recommending >/= 10 yr follow-up interval?: See above
[2023-10-17] MEDS: LACTATED RINGERS 1000ML 1,000 ML 25 ML IV (08:44)
[2023-10-17 08:54] LABS: POC Glucose,Bedside 293 (70-110)
--- NOTE | 2023-10-17 08:54 | EXP.ANES.CKL ---
[facility] Disclaimer: The information contained in this section may have been updated after the patient was seen, as this information can be updated by other users. Medical History Abnormal EKG Anxiety CAD (coronary artery disease) Depression Dyspnea Elevated left ventricular end-diastolic pressure (LVEDP) History of gastroesophageal reflux (GERD) Hyperlipidemia Hypertension Myopathy Orthopnea Sleep apnea Type 2 diabetes mellitus Vitamin D deficiency Surgical History H/O hernia repair History of colonoscopy History of surgery Family History Other No significant family history Social History Smoking Status: Never smoker second hand exposure: Yes alcohol intake: never substance use type: denies use current occupational status: employed Travel in the last 8 weeks: None household members: spouse housing: house 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 current occupational exposures/hazards: No caffeine: Yes [facility] Anesthesia Checklist Patient Identification Patient Identification: Arm Band, Family and Verbal (Name & ) Structural Data Admitted From: Home Planned Operative Procedure/s: Colonoscopy Consent for Planned Operative Procedure(s) Verified: Yes Verified Documents: Surgical Consent and History and Physical NPO Status Verified Time NPO: 03:00 Chart Verification Results Verified: CBC, BMP and ECG Additional verifications Fingerstick Blood Glucose: 293 Patient : No Anesthesia Reactions: No Cardiovascular Assessment Heart Sounds: S1 & S2 Pulse Rhythm: Irregular Peripheral Edema: Yes (2+ BENNY LE) Airway Assessment Mallampati Score:: Class II C-Spine Mobility Assessed: Yes (FROM) TMJ Mobility Assessed: Yes Dentition: Good Dentition (Nothing loose per pt.) Neurological Assessment Level of Consciousness: Awake, Alert, Appropriate and Follows Commands Hx Seizures: No Numbness or tingling in extremities: No Anesthesia Plan Anesthesia Risk discussed: Yes Anesthesia Plan: Verified ASA Class: III Anesthesia Type: MAC
--- NOTE | 2023-10-17 10:19 | XR_ITS ---
FINAL REPORT CLINICAL HISTORY: BLOODY SPUTUM FINDINGS: SINGLE-VIEW CHEST The heart size is normal. The mediastinum is normal. There are left base opacities, may represent atelectasis or pneumonia. There is no pneumothorax. IMPRESSION: Left base atelectasis or pneumonia. Reviewed, Interpreted and Dictated by Geoff Liu III, MD Transcribed by Suzanne Aviles Authenticated and [facility]
--- NOTE | 2023-10-17 10:53 | EXP.ANES.I ---
[facility] Anesthesia Record Part I Anesthesia Record I Intake, IV Amount: 850 Hydration: Adequate Estimated blood loss (mL): 10 Urine output (mL): 0 Blood Products used (#): none Blood Pressure: 136/72 SaO2: 98 Pulse Rate: 64 Airway Patency: Patent Respiratory Rate: 18 Temperature: 97.0 F Patient is:: Awake (Talking) and Stable Stable to PACU at:: 10:53
--- NOTE | 2023-10-17 12:11 | SUR.PHASEII ---
Called radiology and spoke to Ashley who states that pt's CXR is next in line to be read and if not read in the next 10 min they will call to check on eta.
--- NOTE | 2023-10-17 12:31 | SUR.PHASEII ---
1226 - R SHABANA Sarkar aware of cxr results. 1228 - Spoke w/ pt's PCP office and made aware to note CXR to be reviewed at pt's appt on Friday w/ Radha Arizmendi. Reminded pt of appointment w/ PCP on Friday. Verbalized understanding. R SHABANA Sarkar also spoke w/ pt in room about CXR results prior to DC.
[2023-10-18 14:35] LABS: CEA 2.2 ng/mL (0.0-4.7)
== END 2023-10-17 12:35 | disposition home or self-care (01) ==
PROVIDERS: PCP Physician Assistant; Visit Provider Surgery
PROC: 0DJD8ZZ Inspection of Lower Intestinal Tract, Via Natural or Artificial Opening Endoscopic (ICD-10-PCS; CPT 45385; principal; 2023-10-17 08:30)
DX: R10.12 Left upper quadrant pain (principal); Z91.199 Patient's noncompliance with other medical treatment and regimen due to unspecified reason; K57.30 Diverticulosis of large intestine without perforation or abscess without bleeding; D12.5 Benign neoplasm of sigmoid colon; E11.9 Type 2 diabetes mellitus without complications
CPT/HCPCS: 45385; 71045; 82378; 82962; 88305; J2704

== ENCOUNTER 2023-10-20 23:34 | Outpatient (CLI) | payer MEDICARE, SELFPAY ==
[2023-10-20 19:44] LABS: Basophils % 0.6 % (0.1-2.0); Eosinophils # 0.3 K/mm3 (0.0-0.4); Eosinophils % 4.3 % (0.1-12.0); Hematocrit 30.7 % (42.0-52.0); Hemoglobin 9.6 g/dL (14.1-18.0); Lymphocytes # 1.1 K/mm3 (0.7-4.5); Lymphocytes % 19.2 % (10-50); Mean Corpuscular HGB Conc 31.4 g/dL (31.8-35.4); Mean Corpuscular Hemoglobin 21.1 pg (27.0-31.2); Mean Corpuscular Volume 67.4 fl (80-94); Mean Platelet Volume 8.5 fl (7.4-10.4); Monocytes # 0.3 K/mm3 (0.1-1.0); Monocytes % 4.6 % (1.7-9.3); Neutrophils # 4.1 K/mm3 (1.8-7.8); Neutrophils % 71.4 % (37.0-80.0); Platelet Count 270 K/mm3 (142-424); Red Blood Count 4.56 M/mm3 (4.60-6.20); Red Cell Distribution Width 17.7 % (11.5-17.5); White Blood Count 5.8 K/mm3 (4.8-10.8)
[2023-10-20 19:55] LABS: Hemoglobin A1C 11.9 % (4.0-6.0)
[2023-10-20 20:10] LABS: Alanine Aminotransferase 28 U/L (12-78); Albumin/Globulin Ratio 0.9 (1.1-1.8); Alkaline Phosphatase 171 U/L (38-126); Anion Gap 8.8 mEq/L (5-15); Aspartate Amino Transferase 26 U/L (17-59); Bilirubin,Total 0.3 mg/dl (0.2-1.3); Blood Urea Nitrogen 12 mg/dl (9-20); Calcium 8.3 mg/dl (8.4-10.2); Carbon Dioxide 22 mmol/L (22.0-30.0); Chloride 103 mmol/L (98-107); Chol/HDL Ratio 4.7 (1-3.5); Cholesterol 169 mg/dl (140-200); Estimated Glomerular Filt Rate 133 ml/min (>60); GFR (African American) 161 ML/MIN (>60); Globulin 3.5 g/dL (1.3-3.2); Glucose 335 mg/dl (74-100); HDL Cholesterol 36 mg/dl (40-60); Potassium 3.8 mmoL/L (3.5-5.1); Sodium 130 mmol/L (136-145); Total Protein,Serum 6.5 g/dl (6.3-8.2); Triglycerides 193 mg/dl (30-150); VLDL Cholesterol 39 mg/dL (0-40)
[2023-10-20 20:21] LABS: Direct LDL Cholesterol 99.02 mg/dL (100-129)
[2023-10-20 20:42] LABS: Prostate Specific Ag Screen 0.7 ng/ml (0.0-4.0); Thyroid Stimulating Hormone 2.88 uIU/mL (0.465-4.68)
[2023-10-20 20:45] LABS: 25-OH Vitamin D, Total 33.7 ng/mL (30-100)
[2023-10-21 15:33] LABS: Iron 25 ug/dL (49-181)
[2023-10-21 15:43] LABS: Total Iron Binding Capacity 372 ug/dL (261-462)
[2023-10-21 16:07] LABS: Ferritin 17.8 ng/ml (17.9-464)
== END 2023-10-20 23:59 ==
LOC: LAB.DROPOF 23:35
PROVIDERS: PCP Physician Assistant; Visit Provider Physician Assistant
DX: Z12.5 Encounter for screening for malignant neoplasm of prostate (principal); E11.9 Type 2 diabetes mellitus without complications; E55.9 Vitamin D deficiency, unspecified; R53.83 Other fatigue; Z68.41 Body mass index [BMI] 40.0-44.9, adult; Z79.4 Long term (current) use of insulin
CPT/HCPCS: 80053; 80061; 82306; 82728; 83036; 83540; 83550; 84443; 85025; G0103

== ENCOUNTER 2023-10-21 10:37 | Outpatient (CLI) | payer MEDICARE, SELFPAY | END 2023-10-21 23:59 | LOC: LAB.DROPOF 10-24 10:38 | PROVIDERS: PCP Physician Assistant; Visit Provider Physician Assistant | DX: Z79.899 Other long term (current) drug therapy (principal); D64.9 Anemia, unspecified | CPT/HCPCS: 82728; 83540; 83550 ==

== ENCOUNTER 2023-10-23 10:09 | Outpatient (CLI) | payer MEDICARE, SELFPAY ==
[2023-10-23 11:00] LABS: Blood Urea Nitrogen 13 mg/dl (9-20); Estimated Glomerular Filt Rate 133 ml/min (>60); GFR (African American) 161 ML/MIN (>60)
== END 2023-10-23 23:59 ==
LOC: LAB 10:10
PROVIDERS: PCP Physician Assistant; Visit Provider Surgery
DX: R10.9 Unspecified abdominal pain (principal)
CPT/HCPCS: 36415; 82565; 84520

== ENCOUNTER 2023-10-29 07:38 | Outpatient (CLI) | payer MEDICARE, SELFPAY ==
--- NOTE | 2023-10-29 07:39 | CT_ITS ---
FINAL REPORT CLINICAL HISTORY: abdominal pain COMPARISON: None FINDINGS: CT OF THE ABDOMEN AND PELVIS WITH CONTRAST Axial CT images of the abdomen and pelvis were obtained after the administration of oral and iv contrast. Coronal and sagittal reformatted images were also obtained and reviewed.This study was performed with techniques to keep radiation doses as low as reasonably achievable (ALARA). Individualized dose reduction techniques using automated exposure control or adjustment of mA and/or kV according to the patient's size were employed. Abdomen: There is a calcified granuloma present in the right lung base. There are multiple less than 5 mm in size pulmonary nodules present. There is a diverticulum of the distal esophagus which measures 7.2 cm in diameter.. The heart is normal in size. The liver has an unremarkable appearance, without evidence of mass or biliary ductal dilatation. There is an abnormal density in the gallbladder that may represent a noncalcified stone. The spleen is unremarkable. No adrenal mass is present. The pancreas has an unremarkable appearance. There are small bilateral renal cysts. There is a 12 mm mass in the lower pole of the left kidney that does not represent a simple cyst but may represent a complex cyst, and renal mass protocol CT is suggested for further evaluation. The aorta is normal in caliber. There is no free fluid or adenopathy. There is a small lipoma in the right lateral abdominal wall. Multiple colonic diverticula are present, and there is mild stranding adjacent to the distal sigmoid colon, worrisome for mild acute diverticulitis. No associated fluid collection to suggest an abscess is seen. Pelvis: The appendix is normal in appearance. The urinary bladder is unremarkable. Small bilateral inguinal hernias containing fat are present. There is no evidence of mass or adenopathy. There is no evidence of bowel obstruction. IMPRESSION: Multiple colonic diverticula are present, and there is mild stranding adjacent to the distal sigmoid colon, worrisome for mild acute diverticulitis. Questionable noncalcified stone in the gallbladder, recommend ultrasound for further evaluation. 7.2 cm distal esophageal diverticulum. Small bilateral renal cysts, uterine mass in the lower pole of the left kidney that has an appearance not compatible with a simple cyst. Suggest renal mass protocol CT for further evaluation. Reviewed, Interpreted and Dictated by Geoff Liu III, MD Transcribed by Yuli Coats Authenticated and [facility]
[2023-10-29] MEDS: SODIUM CHLORIDE 0.9% 10ML SYR (RAD ONLY) 10 ML IV (08:37)
[2023-10-29] MEDS: IOPAMIDOL-370 (76%);100ML BOTTLE 75 ML IV (08:38)
== END 2023-10-29 23:59 ==
LOC: RAD 07:39
PROVIDERS: PCP Physician Assistant; Visit Provider Surgery
DX: R10.9 Unspecified abdominal pain (principal)
CPT/HCPCS: 74177; Q9967

== ENCOUNTER 2024-02-06 08:37 | Day surgery (SDC) | payer MEDICARE, SELFPAY ==
[2024-02-04 14:02] VITALS: BMI 40.4
--- NOTE | 2024-02-06 08:53 | HMH.SCOPE ---
Procedure: Date: 02/06/24 Patient Date of :: 1950 Procedure Performed:: Limited flexible sigmoidoscopy with polypectomy using hot snare and biopsy Indications:: . Patient presents for follow-up early interval colonoscopy. Colonoscopy done on 10/17/2023 revealed polypoid mass and sharp angulation at approximately 45 cm in the sigmoid colon. At that time he was noted to have poor colonic preparation and initially upon advancement of the colonoscope consideration was being given for possible /termination of the procedure due to the poor prep. However there was noted to be a polypoid mass at the sigmoid colon as stated. This was removed in an aggressive piecemeal fashion using a large 30 mm hot snare repeatedly followed by 13 mm hot snare and 9 mm cold snare it appeared as though essentially the lesion was removed in its entirety but there was some mucosal edema. The area was marked with Ijeoma ink. Pathology revealed focal surface high-grade dysplasia in the background of tubulovillous adenoma with no invasive carcinoma. I had him undergo a CT scan which revealed findings of multiple colonic diverticula with some mild stranding adjacent to the distal sigmoid colon. There was a possible noncalcified stone in the gallbladder. There is also 7.2 cm distal esophageal diverticulum. There is also small bilateral renal cysts and a lesion in the lower pole of the left kidney which was not compatible with a simple cyst and a renal mass protocol CT recommended. Plan was made to proceed with follow-up colonoscopy to ensure complete removal of the tubulovillous adenoma with high-grade dysplasia. He will need a renal mass protocol CT scan. . Performing Provider:: Geoff Tovar MD Referring Provider:: Lian Arizmendi Sedation:: MAC sedation Procedure:: Patient history was obtained and appropriate physical examination was performed. Patient's medications and allergies were reviewed. Informed consent was obtained after explaining the benefits, alternatives, and risks of the procedure including, but not limited to, bleeding, perforation, missed lesions, and adverse reaction to anesthesia medications. Patient was transported to endoscopy procedure room. Patient was connected to monitoring devices. Throughout the procedure the patient's blood pressure, pulse, and oxygen saturations were monitored continuously. Patient identification and planned procedure were verified by the staff. Patient was positioned in lateral decubitus position. Digital anorectal exam was performed. Variable stiffness Olympus colonoscope was inserted and advanced under direct visualization. Colonic preparation was extremely poor as there was liquid opaque stool throughout the colon and coating the kelley of the colon. In the descending colon there were too numerous to count hard stool balls. At this location, at approximately 50 cm, ultimately the previous marking with Ijeoma ink was identified. There was noted to be residual polypoid tissue which was removed using hot snare. However, given the extremely poor prep this was unable to be retrieved despite high-volume trans colonoscopic irrigation and suctioning as well as flushing through the colonoscope. Base of the polyp was biopsied with biopsy forceps. Colonoscope was withdrawn. . Findings:: Extremely poor preparation Sigmoid diverticulosis Residual polypoid tissue at previous polypectomy site, removed with hot snare but unable to be retrieved due to poor prep. Biopsy of polypectomy site performed Recommendations:: Repeat colonoscopy with maximum multi day prep in several months. Complications:: None immediately apparent Estimated blood obtained (mL): 1 Colonoscopy Component Colonoscopy Component Was a colonoscopy performed during today's procedure?: No
[2024-02-06 08:57] VITALS: BP 196/94; PULSE 60; RESP 18; TEMP 36.8; O2SAT 98
[2024-02-06] MEDS: LACTATED RINGERS 1000ML 1,000 ML 25 ML IV (08:57)
--- NOTE | 2024-02-06 09:08 | EXP.ANES.CKL ---
[facility] Disclaimer: The information contained in this section may have been updated after the patient was seen, as this information can be updated by other users. Medical History Orthopnea Dyspnea Myopathy Anxiety Sleep apnea History of gastroesophageal reflux (GERD) Hypertension CAD (coronary artery disease) Elevated left ventricular end-diastolic pressure (LVEDP) Abnormal EKG Hyperlipidemia Vitamin D deficiency Depression Type 2 diabetes mellitus Surgical History History of colonoscopy History of surgery RIGHT FEMUR TUMOR REMOVED H/O hernia repair Family History Other No significant family history Social History Smoking Status: Never smoker second hand exposure: Yes alcohol intake: never substance use type: denies use current occupational status: employed Travel in the last 8 weeks: None household members: spouse housing: house 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 current occupational exposures/hazards: No caffeine: Yes [facility] Anesthesia Checklist Patient Identification Patient Identification: Arm Band and Verbal (Name & ) Structural Data Admitted From: Home Planned Operative Procedure/s: Colonoscopy Consent for Planned Operative Procedure(s) Verified: Yes Verified Documents: Surgical Consent and History and Physical NPO Status Verified Time NPO: 00:00 Chart Verification Results Verified: CBC, BMP, ECG and Chest Xray Additional verifications Fingerstick Blood Glucose: 165 Patient : No Anesthesia Reactions: No Cardiovascular Assessment Heart Sounds: S1 & S2 Pulse Rhythm: Irregular Peripheral Edema: Yes (2+ BENNY LE) Airway Assessment Mallampati Score:: Class II C-Spine Mobility Assessed: Yes (FROM) TMJ Mobility Assessed: Yes Dentition: Good Dentition (Nothing loose per pt.) Neurological Assessment Level of Consciousness: Awake, Alert, Appropriate and Follows Commands Hx Seizures: No Numbness or tingling in extremities: No Anesthesia Plan Anesthesia Risk discussed: Yes Anesthesia Plan: Verified ASA Class: III Anesthesia Type: MAC
[2024-02-06 09:14] VITALS: O2SAT 98
[2024-02-06 09:17] LABS: POC Glucose,Bedside 165 (70-110)
[2024-02-06 09:46] VITALS: BP 160/83; PULSE 60; RESP 18; TEMP 36.2; O2SAT 95
--- NOTE | 2024-02-06 09:50 | P.PNANES_ITS ---
[facility] Anesthesia Record Part I Anesthesia Record I Intake, IV Amount: 750 Hydration: Adequate Estimated blood loss (mL): 1 Urine output (mL): 0 Blood Products used (#): none Blood Pressure: 160/83 SaO2: 96 Pulse Rate: 64 Airway Patency: Patent Respiratory Rate: 18 Temperature: 97.2 F Patient is:: Awake (Talking) and Stable Stable to PACU at:: 09:51
[2024-02-06 09:51] VITALS: BP 160/83; PULSE 64; RESP 18; TEMP 36.2; O2SAT 96
[2024-02-06 09:56] VITALS: BP 128/75; PULSE 67; RESP 18; O2SAT 96
[2024-02-06 10:02] VITALS: BP 141/79; PULSE 56; RESP 18; O2SAT 97
== END 2024-02-06 10:06 | disposition home or self-care (01) ==
PROVIDERS: PCP Physician Assistant; Visit Provider Surgery
PROC: 0DJD8ZZ Inspection of Lower Intestinal Tract, Via Natural or Artificial Opening Endoscopic (ICD-10-PCS; CPT 45330; principal; 2024-02-06 09:30)
DX: K63.5 Polyp of colon (principal); E11.9 Type 2 diabetes mellitus without complications; Z91.199 Patient's noncompliance with other medical treatment and regimen due to unspecified reason; Z86.010 Personal history of colon polyps
CPT/HCPCS: 45338; 82962; 88305

== ENCOUNTER 2024-04-05 11:38 | Outpatient (CLI) | payer MEDICARE, SELFPAY ==
[2024-04-05 19:02] LABS: Basophils % 0.5 % (0.1-2.0); Eosinophils # 0.2 K/mm3 (0.0-0.4); Eosinophils % 3.2 % (0.1-12.0); Hematocrit 45.3 % (42.0-52.0); Hemoglobin 14.6 g/dL (14.1-18.0); Lymphocytes # 1.1 K/mm3 (0.7-4.5); Lymphocytes % 19.2 % (10-50); Mean Corpuscular HGB Conc 32.2 g/dL (31.8-35.4); Mean Corpuscular Hemoglobin 27.6 pg (27.0-31.2); Mean Corpuscular Volume 85.8 fl (80-94); Mean Platelet Volume 9.2 fl (7.4-10.4); Monocytes # 0.4 K/mm3 (0.1-1.0); Monocytes % 5.9 % (1.7-9.3); Neutrophils # 4.3 K/mm3 (1.8-7.8); Neutrophils % 71.2 % (37.0-80.0); Platelet Count 237 K/mm3 (142-424); Red Blood Count 5.28 M/mm3 (4.60-6.20); Red Cell Distribution Width 15.9 % (11.5-17.5)
[2024-04-05 19:33] LABS: Chloride 99 mmol/L (98-107); Sodium 131 mmol/L (136-145)
[2024-04-05 19:35] LABS: Alanine Aminotransferase 50 U/L (12-78); Aspartate Amino Transferase 34 U/L (17-59); Blood Urea Nitrogen 20 mg/dl (9-20); Estimated Glomerular Filt Rate 111 ml/min (>60); GFR (African American) 134 ML/MIN (>60)
[2024-04-05 19:36] LABS: Albumin Level 3.8 g/dl (3.5-5.0); Albumin/Globulin Ratio 1.2 (1.1-1.8); Alkaline Phosphatase 224 U/L (38-126); Bilirubin,Total 0.4 mg/dl (0.2-1.3); Calcium 9.7 mg/dl (8.4-10.2); Carbon Dioxide 24 mmol/L (22.0-30.0); Chol/HDL Ratio 5.6 (1-3.5); Cholesterol 234 mg/dl (140-200); Globulin 3.3 g/dL (1.3-3.2); Glucose 328 mg/dl (74-100); HDL Cholesterol 42 mg/dl (40-60); Total Protein,Serum 7.1 g/dl (6.3-8.2); Triglycerides 301 mg/dl (30-150); VLDL Cholesterol 60 mg/dL (0-40)
[2024-04-05 19:49] LABS: 25-OH Vitamin D, Total 25.8 ng/mL (30-100); Direct LDL Cholesterol 138.34 mg/dL (100-129)
[2024-04-05 20:07] LABS: Thyroid Stimulating Hormone 3.74 uIU/mL (0.465-4.68)
[2024-04-05 21:21] LABS: Hemoglobin A1C 9.9 % (4.0-6.0)
== END 2024-04-05 23:59 | disposition home or self-care (01) ==
LOC: LAB.DROPOF 04-06 11:38
PROVIDERS: PCP Physician Assistant; Visit Provider Physician Assistant
DX: E55.9 Vitamin D deficiency, unspecified (principal); E11.9 Type 2 diabetes mellitus without complications; R53.83 Other fatigue; E78.5 Hyperlipidemia, unspecified; Z79.4 Long term (current) use of insulin; Z79.84 Long term (current) use of oral hypoglycemic drugs; Z79.85 Long-term (current) use of injectable non-insulin antidiabetic drugs
CPT/HCPCS: 80050; 80053; 80061; 82306; 83036; 84443; 85025

== ENCOUNTER 2024-05-24 11:06 | Day surgery (SDC) | payer MEDICARE, SELFPAY ==
--- NOTE | 2024-05-24 11:16 | P.PCN_ITS ---
Procedure: Date: 05/24/24 Patient Date of :: 1950 Procedure Performed:: Total colonoscopy to terminal ileum with complex polypectomy Indications:: Patient presents back for attempt at colonoscopy once again. Colonoscopy done on 10/17/2023 revealed polypoid mass and sharp angulation at approximately 45 cm in the sigmoid colon. At that time he was noted to have poor colonic preparation and initially upon advancement of the colonoscope consideration was being given for possible /termination of the procedure due to the poor prep. However there was noted to be a polypoid mass at the sigmoid colon as stated. This was removed in an aggressive piecemeal fashion using a large 30 mm hot snare repeatedly followed by 13 mm hot snare and 9 mm cold snare it appeared as though essentially the lesion was removed in its entirety but there was some mucosal edema. The area was marked with Ijeoma ink. Pathology revealed focal surface high-grade dysplasia in the background of tubulovillous adenoma with no invasive carcinoma. I had him undergo a CT scan which revealed findings of multiple colonic diverticula with some mild stranding adjacent to the distal sigmoid colon. There was a possible noncalcified stone in the gallbladder. There is also 7.2 cm distal esophageal diverticulum. There is also small bilateral renal cysts and a lesion in the lower pole of the left kidney which was not compatible with a simple cyst and a renal mass protocol CT recommended. Plan was made to proceed with follow-up colonoscopy to ensure complete removal of the tubulovillous adenoma with high-grade dysplasia. Colonoscopy was performed on 02/06/2024 for follow-up and reinspection of the sigmoid polypectomy region. He was found to have extremely poor preparation with sigmoid diverticulosis. There is some residual polypoid tissue at the previous site which was removed but unable to be retrieved due to poor preparation. Biopsy was performed at the polypectomy site which was benign. 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 Plan was made for repeat colonoscopy with maximum multi day prep. He underwent several days of MiraLAX with 4 bottles of magnesium citrate finishing several hours prior to the procedure. He will need a renal mass protocol CT scan. . Performing Provider:: Geoff Tovar MD Referring Provider:: Lian Arizmendi Sedation:: MAC sedation Procedure:: Patient history was obtained and appropriate physical examination was performed. Patient's medications and allergies were reviewed. Informed consent was obtained after explaining the benefits, alternatives, and risks of the procedure including, but not limited to, bleeding, perforation, missed lesions, and adverse reaction to anesthesia medications. Patient was transported to endoscopy procedure room. Patient was connected to [employer] onitoring devices. Throughout the procedure the patient's blood pressure, pulse, and oxygen saturations were monitored continuously. Patient identification and planned procedure were verified by the staff. Patient was positioned in lateral decubitus position. Digital anorectal exam was performed. Variable stiffness Olympus colonoscope was inserted and advanced under direct visualization to the cecum. Adequacy of the colonic preparation was noted. The colonoscope was advanced a short distance into the terminal ileum. The colonoscope was then slowly withdrawn while carefully examining the color, texture, anatomy, and integrity of the mucosoa circumferentially. Within the rectum retroflexion was performed. Colonoscope was then withdrawn. Impression: Advancement of the colonoscope to the cecum and ileocecal valve was extremely difficult due to floppiness and redundancy of the colon. Colonic preparation was fair with a large amount of liquid particulate stool throughout the colon. This was able to be cleared with suction. He had significant pandiverticulosis with a large amount of diverticuli in the left colon. In the ascending colon there was an adenomatous sessile polyp removed with cold snare. Previous polypectomy site was encountered in the sigmoid colon. There was scarring from previous polypectomy at the left edge of this along the ridge was a moderate residual/recurrent polypoid lesion. This was removed in a piecemeal fashion using hot snare. Required some injection of Marielena view on the proximal side of the polyp of the ridge for elevation and visualization. It appears as though majority of the polyp was removed. However based tissue was biopsied using the hot snare to obliterate any significant residual adenomatous tissue. Adjacent to this was a tiny possible adenomatous polyp removed with biopsy forceps. . Findings:: Fair prep Significant pandiverticulosis Sessile adenomatous appearing polyp, ascending colon Residual/recurrent sigmoid polyp . Recommendations:: This is a rather aggressive sigmoid polyp. Pending the pathology likely repeat flexible sigmoidoscopy in a few months (4-6). If continues to be recurrent could require referral for consideration of laparoscopic sigmoid colon resection. Complications:: None immediately apparent Estimated blood obtained (mL): 3 Colonoscopy Component Colonoscopy Component Was a colonoscopy performed during today's procedure?: Yes Recommended follow up colonoscopy of at least 10 years?: No If no, follow up colonoscopy recommended in ___ years?: See above Reason for not recommending >/= 10 yr follow-up interval?: See above
[2024-05-24 11:29] VITALS: BP 189/101; PULSE 71; RESP 18; TEMP 36.4; O2SAT 96; BMI 41.8
[2024-05-24] MEDS: LACTATED RINGERS 1000ML 1,000 ML 100 ML IV (11:40)
[2024-05-24 11:41] LABS: POC Glucose,Bedside 244 (70-110)
[2024-05-24 11:52] VITALS: O2SAT 99
[2024-05-24 13:03] VITALS: BP 95/71; PULSE 59; RESP 16; TEMP 36.3; O2SAT 94
[2024-05-24 13:11] VITALS: BP 133/67; PULSE 61; RESP 18; O2SAT 94
[2024-05-24 13:21] VITALS: BP 158/86; PULSE 62; RESP 18; O2SAT 96
[2024-05-24 13:29] VITALS: BP 162/78; PULSE 51; RESP 18; O2SAT 97
== END 2024-05-24 13:31 | disposition home or self-care (01) ==
PROVIDERS: PCP Physician Assistant; Visit Provider Surgery
PROC: 0DJD8ZZ Inspection of Lower Intestinal Tract, Via Natural or Artificial Opening Endoscopic (ICD-10-PCS; CPT 45385; principal; 2024-05-24 11:30)
DX: Z09 Encounter for follow-up examination after completed treatment for conditions other than malignant neoplasm (principal); Z86.010 Personal history of colon polyps; K57.30 Diverticulosis of large intestine without perforation or abscess without bleeding; D12.2 Benign neoplasm of ascending colon; D12.5 Benign neoplasm of sigmoid colon; E11.9 Type 2 diabetes mellitus without complications; Z79.4 Long term (current) use of insulin
CPT/HCPCS: 45385; 45380; 82962; J2704; J7120

== ENCOUNTER 2024-07-03 12:22 | Emergency (ER) | payer MEDICARE, SELFPAY ==
--- NOTE | 2024-07-03 12:45 | EXP.UTC ---
Discharge Plan Disposition Patient Disposition: Home, Self-Care Condition: Good Prescriptions Prescriptions: New sulfamethoxazole-trimethoprim [Bactrim DS] 800-160 mg Tablet 1 tab PO BID Qty: 20 0RF cephalexin 500 mg capsule 500 mg PO QID Qty: 40 0RF No Action Ozempic 1 mg/dose (4 mg/3 mL) pen injector 1 mg SQ WEEKLY Qty: 3 2RF insulin glargine [Lantus Solostar U-100 Insulin] 100 unit/mL (3 mL) insulin pen 10 unit SQ HS Qty: 15 2RF Invokana 300 mg tablet 300 mg PO DAILY Qty: 30 2RF Slow Fe 137 mg (45 mg iron) tablet extended release 137 mg PO DAILY Qty: 90 0RF potassium chloride 10 mEq tablet,ER particles/crystals See Rx Instructions .ROUTE .COMPLEX Qty: 90 0RF Dose Instruction: TAKE 1 TABLET BY MOUTH DAILY Rx Instructions: TAKE 1 TABLET BY MOUTH DAILY ergocalciferol (vitamin D2) 1,250 mcg (50,000 unit) capsule See Rx Instructions .ROUTE .COMPLEX Qty: 12 0RF Dose Instruction: TAKE 1 CAPSULE BY MOUTH WEEKLY Rx Instructions: TAKE 1 CAPSULE BY MOUTH WEEKLY cholecalciferol (vitamin D3) [Vitamin D3] 25 mcg (1,000 unit) capsule See Rx Instructions .ROUTE .COMPLEX Qty: 30 0RF Dose Instruction: TAKE 1 CAPSULE BY MOUTH DAILY Rx Instructions: TAKE 1 CAPSULE BY MOUTH DAILY amoxicillin 875 mg tablet 875 mg PO BID Qty: 20 0RF losartan-hydrochlorothiazide 100-25 mg tablet See Rx Instructions .ROUTE .COMPLEX Qty: 90 0RF Dose Instruction: TAKE 1 TABLET BY MOUTH DAILY FOR HIGH BLOOD PRESSURE Rx Instructions: TAKE 1 TABLET BY MOUTH DAILY FOR HIGH BLOOD PRESSURE Januvia 100 mg tablet See Rx Instructions .ROUTE .COMPLEX Qty: 90 0RF Dose Instruction: TAKE 1 TABLET BY MOUTH EVERY DAY Rx Instructions: TAKE 1 TABLET BY MOUTH EVERY DAY metoprolol succinate 25 mg tablet extended release 24 hr See Rx Instructions .ROUTE .COMPLEX Qty: 30 0RF Dose Instruction: TAKE 1 TABLET BY MOUTH DAILY Rx Instructions: TAKE 1 TABLET BY MOUTH DAILY venlafaxine [Effexor XR] 75 mg capsule,extended release 24hr See Rx Instructions .ROUTE .COMPLEX Rx Instructions: Take 1 capsule at bedtime for Anxiety amlodipine [Norvasc] 5 mg tablet 5 mg PO DAILY Rx Instructions: TAKE 1 TABLET BY MOUTH DAILY aspirin [Grace Aspirin] 81 mg tablet,delayed release (DR/EC) 81 mg PO DAILY Rx Instructions: TAKE 1 TABLET BY MOUTH DAILY pantoprazole [Protonix] 40 mg tablet,delayed release (DR/EC) 40 mg PO DAILY sildenafil (pulm.hypertension) [Revatio] 20 mg tablet See Rx Instructions .ROUTE .COMPLEX Rx Instructions: Take 1 to 2 po as needed; trazodone 50 mg tablet 50 mg PO DAILY Rx Instructions: TAKE 1 TABLET BY MOUTH EVERY NIGHT AT BEDTIME Referrals Follow up/Referrals: Lian Arizmendi PA [Primary Care Provider] - See instructions Activity Restrictions/Add. Instructions Additional Instructions/Restrictions: Drink plenty of fluids. Continue to use the clotrimazole cream that you were prescribed before. Take tylenol or ibuprofen for pain or fever. Take the medications as directed. Follow up with your regular doctor. GO TO THE ER FOR ANY WORSENING SYMPTOMS Clinical Impressions Clinical Impression: Balanitis Instructions Patient Instructions: BILL for Balanitis Print Language Print Language: [place] Discharge ED Provider: Alfred Knight [facility] HPI General Stated complaint: foreskin on penis possibly infected Time Seen by Provider: 07/03/24 12:45 History of Present Illness Provider Complaint: He states that for the past 4 days he has had redness and swelling of his foreskin. He works out of town, so he went to a [facility] close to his job site 3 days ago. He was prescribed topical clotrimazole. He states that he has been using the medication as directed and his symptoms are getting worse instead of better. He is a diabetic and he takes Invokana. He denies that his blood sugars have been running higher than normal. He denies any fever/chills. He is not having difficulty urinating. Related Data Home Medications ?Medication ?Instructions ?Recorded ?Confirmed amlodipine 5 mg tablet (Norvasc) 5 mg PO DAILY 05/24/24 05/24/24 aspirin 81 mg tablet,delayed 81 mg PO DAILY 05/24/24 05/24/24 release (Grace Aspirin) pantoprazole 40 mg tablet,delayed 40 mg PO DAILY 05/24/24 05/24/24 release (Protonix) sildenafil (pulm.hypertension) 20 See Rx Instructions .Route .COMPLEX 05/24/24 05/24/24 mg tablet (Revatio) trazodone 50 mg tablet 50 mg PO DAILY 05/24/24 05/24/24 venlafaxine 75 mg capsule,extended See Rx Instructions .Route .COMPLEX 05/24/24 05/24/24 release 24 hr (Effexor XR) Previous Rx's ?Medication ?Instructions ?Recorded ferrous sulfate 137 mg (45 mg 137 mg PO DAILY #90 tabs 10/24/23 iron) tablet,extended release (Slow Fe) potassium chloride 10 mEq See Rx Instructions .Route 12/05/23 tablet,extended release(part/cryst) .COMPLEX #90 tabs canagliflozin 300 mg tablet 300 mg PO DAILY #30 tabs 04/05/24 (Invokana) ergocalciferol (vitamin D2) 1,250 See Rx Instructions .Route 04/05/24 mcg (50,000 unit) capsule .COMPLEX #12 caps insulin glargine 100 unit/mL (3 10 unit (0.1 mL) SQ HS #15 mL 04/05/24 mL) subcutaneous pen (Lantus Solostar U-100 Insulin) semaglutide 1 mg/dose (4 mg/3 mL) 1 mg (0.75 mL) SQ WEEKLY #3 mL 04/05/24 subcutaneous pen injector (Ozempic) cholecalciferol (vitamin D3) 25 See Rx Instructions .Route 04/19/24 mcg (1,000 unit) capsule (Vitamin .COMPLEX #30 caps D3) amoxicillin 875 mg tablet 875 mg PO BID #20 tabs 06/01/24 losartan 100 See Rx Instructions .Route 06/30/24 mg-hydrochlorothiazide 25 mg tablet .COMPLEX #90 tabs metoprolol succinate 25 mg See Rx Instructions .Route 06/30/24 tablet,extended release 24 hr .COMPLEX #30 tabs sitagliptin phosphate 100 mg See Rx Instructions .Route 06/30/24 tablet (Januvia) .COMPLEX #90 tabs cephalexin 500 mg capsule 500 mg PO QID #40 caps 07/03/24 sulfamethoxazole 800 1 tab PO BID #20 tabs 07/03/24 mg-trimethoprim 160 mg tablet (Bactrim DS) Allergies Allergy/AdvReac Type Severity Reaction Status Date / Time atorvastatin [From Lipitor] AdvReac Severe Verified 04/05/24 09:08 rosuvastatin [From Crestor] AdvReac Severe Verified 04/05/24 09:08 [facility] Disclaimer: The information contained in this section may have been updated after the patient was seen, as this information can be updated by other users. Medical History Orthopnea Dyspnea Myopathy Anxiety Sleep apnea History of gastroesophageal reflux (GERD) Hypertension CAD (coronary artery disease) Elevated left ventricular end-diastolic pressure (LVEDP) Abnormal EKG Hyperlipidemia Vitamin D deficiency Depression Type 2 diabetes mellitus Surgical History History of colonoscopy History of surgery RIGHT FEMUR TUMOR REMOVED H/O hernia repair Family History Other No significant family history Social History (Updated 05/24/24 @ 11:29 by Alisha Oswald RN) Smoking Status: Never smoker second hand exposure: Yes alcohol intake: never substance use type: denies use current occupational status: employed Travel in the last 8 weeks: None household members: spouse housing: house 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 current occupational exposures/hazards: No caffeine: Yes ROS Obtained: Yes All systems reviewed & no additional complaints except as documented Constitutional Constitutional: Denies chills and Denies fever(s) Eyes Eyes: Denies eye discharge ENT Ears, Nose, Mouth, and Throat: Denies dizziness, Denies otalgia and Denies sore throat Cardiovascular Cardiovascular: Denies chest pain Respiratory Respiratory: Denies shortness of breath, Denies chest congestion, Denies cough, Denies stridor and Denies wheezing Gastrointestinal Gastrointestingal: Denies nausea or vomiting Genitourinary Male Genitourinary: Reports as per HPI, Denies difficulty urinating, Denies hematuria, Denies penile discharge, Denies scrotal swelling, Denies testicular pain, Denies urinary hesitancy, Denies urinary incontinence and Denies urinary urgency Musculoskeletal Musculoskeletal: Reports system reviewed and no additional complaints, except as documented and Denies arthralgias Integumentary/Breasts Skin/Breast: Reports as per HPI and Reports redness Neurologic Neurologic: Denies dizziness and Denies paresthesias Allergic/Immunologic Allergic/Immunologic: Denies wheezing Physical Exam General General appearance: alert and in no apparent distress Head Head exam: atraumatic, normocephalic and normal inspection Eye Eye exam: Present normal appearance, PERRL and EOMI ENT ENT exam: Present normal exam, normal oropharynx, mucous membranes moist, TM's normal bilaterally and normal external ear exam Neck Neck exam: Present normal inspection, full ROM and trachea midline; Absent meningismus or lymphadenopathy Chest Chest inspection: Present normal inspection and symmetric chest wall rise; Absent tenderness Respiratory Respiratory exam: Present normal lung sounds bilaterally; Absent respiratory distress Cardiovascular Cardiovascular exam: Present regular rate and normal rhythm; Absent JVD Abdominal Exam Abdominal exam: Present soft and normal bowel sounds; Absent distention, tenderness or guarding Expanded Exam exam: Present erythema, balanitis and other (no open area and no drainage. there is mild erythema and mild edema of his foreskin. ); Absent phimosis, penile swelling, lesions or ulcerations Extremities Exam Extremities exam: Present normal inspection, full ROM and normal capillary refill; Absent calf tenderness Back Exam Back exam: Present normal inspection; Absent tenderness Neurological Exam Neurological exam: Present alert and oriented X3 Psychiatric Psychiatric exam: Present normal affect and normal mood Skin Skin exam: Present warm, dry, intact and normal color Lymphatic Lymphatic Findings: no adenopathy Medical Decision Making Medical Records Medical records reviewed: No I reviewed the patient's medical records. Screening: Per USPSTF and CDC recommendations, given the prevalence of disease in our region, it is our hospital?s policy to screen for HIV and viral Hepatitis for all patients aged 18 and over and those with ongoing risk factors. Tobin Inquiry Pt receiving controlled substance: No
[2024-07-03 12:53] LABS: UTC Strep Screen (Rapid) Negative (Negative)
[2024-07-03 12:56] VITALS: BP 156/86; PULSE 75; RESP 16; TEMP 36.5; O2SAT 97; BMI 41.1
[2024-07-03] MEDS: LIDOCAINE 1% 5ML PF VIAL IM (13:40)
[2024-07-03] MEDS: cefTRIAXone 1GM VIAL 1 GM IM (13:40)
[2024-07-03 13:55] VITALS: BP 156/86; PULSE 75; RESP 16; TEMP 36.5; O2SAT 97
== END 2024-07-03 13:56 | disposition home or self-care (01) ==
PROVIDERS: Emergency Provider Nurse Practitioner Family; PCP Physician Assistant
DX: N48.1 Balanitis (principal); E11.9 Type 2 diabetes mellitus without complications; I10 Essential (primary) hypertension; I25.10 Atherosclerotic heart disease of native coronary artery without angina pectoris; G47.30 Sleep apnea, unspecified
CPT/HCPCS: 87880; 96372; 99212; 99214; G0463; J0696

== ENCOUNTER 2024-10-22 07:13 | Outpatient (CLI) | payer MEDICARE, SELFPAY ==
--- NOTE | 2024-10-22 07:18 | US_ITS ---
FINAL REPORT CLINICAL HISTORY: PROSTATE SPECIFIC AG SCREENING --- AAA screening COMPARISON: None FINDINGS: Sonographic images were obtained of the abdominal aorta. The abdominal aorta is within normal limits. The common iliac arteries are within normal limits. IMPRESSION: No evidence of aortic aneurysm. Reviewed, Interpreted and Dictated by Aba Lopez MD Transcribed by Nitza Whalen Authenticated and [facility]
== END 2024-10-22 23:59 | disposition home or self-care (01) ==
LOC: RAD 07:14
PROVIDERS: PCP Physician Assistant; Visit Provider Physician Assistant
DX: Z13.6 Encounter for screening for cardiovascular disorders (principal)
CPT/HCPCS: 76770

== ENCOUNTER 2024-11-12 16:31 | Emergency (ER) | payer MEDICARE, SELFPAY ==
--- NOTE | 2024-11-12 16:44 | CA_ITS ---
FINAL REPORT TECHNIQUE: Ultrasound images of the deep venous system were obtained from the left groin to the calf veins. CLINICAL HISTORY: Left leg pain, edema, asa 81 mg, obesity LLE mid calf difficult to image d/t edema. small area behind the knee and into the calf possible ruptured bakers cyst COMPARISON: None FINDINGS: The deep venous system is normally compressible. Normal flow is identified. IMPRESSION: No evidence of left lower extremity DVT. Reviewed, Interpreted and Dictated by Aba Lopez MD Transcribed by Rachana Hammond Authenticated and [facility]
[2024-11-12 17:50] VITALS: BP 155/88; PULSE 74; RESP 19; TEMP 36.8; O2SAT 98; BMI 41.8
--- NOTE | 2024-11-12 17:51 | ED_ITS ---
Discharge Plan Disposition Patient Disposition: Home, Self-Care Condition: Good Prescriptions Prescriptions: New ibuprofen [IBU] 800 mg tablet 800 mg PO Q8HP PRN (Reason: Moderate Pain) Qty: 30 0RF No Action Ozempic 1 mg/dose (4 mg/3 mL) pen injector 1 mg SQ WEEKLY Qty: 3 2RF insulin glargine [Lantus Solostar U-100 Insulin] 100 unit/mL (3 mL) insulin pen 10 unit SQ HS Qty: 15 2RF Invokana 300 mg tablet 300 mg PO DAILY Qty: 30 2RF Slow Fe 137 mg (45 mg iron) tablet extended release 137 mg PO DAILY Qty: 90 0RF potassium chloride 10 mEq tablet,ER particles/crystals See Rx Instructions .ROUTE .COMPLEX Qty: 90 0RF Dose Instruction: TAKE 1 TABLET BY MOUTH DAILY Rx Instructions: TAKE 1 TABLET BY MOUTH DAILY cholecalciferol (vitamin D3) [Vitamin D3] 25 mcg (1,000 unit) capsule See Rx Instructions .ROUTE .COMPLEX Qty: 30 0RF Dose Instruction: TAKE 1 CAPSULE BY MOUTH DAILY Rx Instructions: TAKE 1 CAPSULE BY MOUTH DAILY amoxicillin 875 mg tablet 875 mg PO BID Qty: 20 0RF Januvia 100 mg tablet See Rx Instructions .ROUTE .COMPLEX Qty: 90 0RF Dose Instruction: TAKE 1 TABLET BY MOUTH EVERY DAY Rx Instructions: TAKE 1 TABLET BY MOUTH EVERY DAY amlodipine 5 mg tablet See Rx Instructions .ROUTE .COMPLEX Qty: 30 0RF Dose Instruction: TAKE 1 TABLET BY MOUTH DAILY Rx Instructions: TAKE 1 TABLET BY MOUTH DAILY ergocalciferol (vitamin D2) 1,250 mcg (50,000 unit) capsule See Rx Instructions .ROUTE .COMPLEX Qty: 12 0RF Dose Instruction: TAKE 1 CAPSULE BY MOUTH WEEKLY Rx Instructions: TAKE 1 CAPSULE BY MOUTH WEEKLY metoprolol succinate 25 mg tablet extended release 24 hr See Rx Instructions .ROUTE .COMPLEX Qty: 30 0RF Dose Instruction: TAKE 1 TABLET BY MOUTH DAILY Rx Instructions: TAKE 1 TABLET BY MOUTH DAILY losartan-hydrochlorothiazide 100-25 mg tablet See Rx Instructions .ROUTE .COMPLEX Qty: 90 0RF Dose Instruction: TAKE 1 TABLET BY MOUTH DAILY FOR HIGH BLOOD PRESSURE Rx Instructions: TAKE 1 TABLET BY MOUTH DAILY FOR HIGH BLOOD PRESSURE venlafaxine [Effexor XR] 75 mg capsule,extended release 24hr See Rx Instructions .ROUTE .COMPLEX Rx Instructions: Take 1 capsule at bedtime for Anxiety aspirin [[place] Aspirin] 81 mg tablet,delayed release (DR/EC) 81 mg PO DAILY Rx Instructions: TAKE 1 TABLET BY MOUTH DAILY pantoprazole [Protonix] 40 mg tablet,delayed release (DR/EC) 40 mg PO DAILY sildenafil (pulm.hypertension) [Revatio] 20 mg tablet See Rx Instructions .ROUTE .COMPLEX Rx Instructions: Take 1 to 2 po as needed; trazodone 50 mg tablet 50 mg PO DAILY Rx Instructions: TAKE 1 TABLET BY MOUTH EVERY NIGHT AT BEDTIME sulfamethoxazole-trimethoprim [Bactrim DS] 800-160 mg Tablet 1 tab PO BID Qty: 20 0RF cephalexin 500 mg capsule 500 mg PO QID Qty: 40 0RF Referrals Follow up/Referrals: Lian Arizmendi PA [Primary Care Provider] - See instructions Anjel Avila DO [Staff Physician] - See instructions Activity Restrictions/Add. Instructions Additional Instructions/Restrictions: Rest the extremity, Elevate the extremity as tolerated while you are resting. Take ibuprofen for pain. I sent in a prescription to your pharmacy. Follow up with Dr. Avila (orthopedics). I put in a referral but you need to call his office and schedule an appointment. Follow up with your regular doctor. GO TO THE ER FOR ANY WORSENING SYMPTOMS Clinical Impressions Clinical Impression: Wesley's cyst of knee Instructions Patient Instructions: BILL Gambino for Wesley Cyst Print Language Print Language: Burkin[place] Discharge ED Provider: Alfred Knight [facility] [place] HPI General Stated complaint: pain in left calf w/swelling Time Seen by Provider: 11/12/24 17:51 History of Present Illness Provider Complaint: He states that for the past approx 2 weeks he has had worsening pain in his left leg in the back of his knee. He has also had swelling of that leg below the painful area. He denies any known injury. He denies any chest pain and shortness of breath. He denies any personal history of family history of blood clots. Related Data Home Medications ?Medication ?Instructions ?Recorded ?Confirmed aspirin 81 mg tablet,delayed 81 mg PO DAILY 05/24/24 05/24/24 release ([place] Aspirin) pantoprazole 40 mg tablet,delayed 40 mg PO DAILY 05/24/24 05/24/24 release (Protonix) sildenafil (pulm.hypertension) 20 See Rx Instructions .Route .COMPLEX 05/24/24 05/24/24 mg tablet (Revatio) trazodone 50 mg tablet 50 mg PO DAILY 05/24/24 05/24/24 venlafaxine 75 mg capsule,extended See Rx Instructions .Route .COMPLEX 05/24/24 05/24/24 release 24 hr (Effexor XR) Previous Rx's ?Medication ?Instructions ?Recorded ferrous sulfate 137 mg (45 mg 137 mg PO DAILY #90 tabs 10/24/23 iron) tablet,extended release (Slow Fe) potassium chloride 10 mEq See Rx Instructions .Route 12/05/23 tablet,extended release(part/cryst) .COMPLEX #90 tabs canagliflozin 300 mg tablet 300 mg PO DAILY #30 tabs 04/05/24 (Invokana) insulin glargine 100 unit/mL (3 10 unit (0.1 mL) SQ HS #15 mL 04/05/24 mL) subcutaneous pen (Lantus Solostar U-100 Insulin) semaglutide 1 mg/dose (4 mg/3 mL) 1 mg (0.75 mL) SQ WEEKLY #3 mL 04/05/24 subcutaneous pen injector (Ozempic) cholecalciferol (vitamin D3) 25 See Rx Instructions .Route 04/19/24 mcg (1,000 unit) capsule (Vitamin .COMPLEX #30 caps D3) amoxicillin 875 mg tablet 875 mg PO BID #20 tabs 06/01/24 sitagliptin phosphate 100 mg See Rx Instructions .Route 06/30/24 tablet (Januvia) .COMPLEX #90 tabs cephalexin 500 mg capsule 500 mg PO QID #40 caps 07/03/24 sulfamethoxazole 800 1 tab PO BID #20 tabs 07/03/24 mg-trimethoprim 160 mg tablet (Bactrim DS) amlodipine 5 mg tablet See Rx Instructions .Route 07/05/24 .COMPLEX #30 tabs ergocalciferol (vitamin D2) 1,250 See Rx Instructions .Route 07/19/24 mcg (50,000 unit) capsule .COMPLEX #12 caps losartan 100 See Rx Instructions .Route 07/28/24 mg-hydrochlorothiazide 25 mg tablet .COMPLEX #90 tabs metoprolol succinate 25 mg See Rx Instructions .Route 07/28/24 tablet,extended release 24 hr .COMPLEX #30 tabs ibuprofen 800 mg tablet (IBU) 800 mg PO Q8HP PRN Moderate Pain 11/12/24 #30 tabs Allergies Allergy/AdvReac Type Severity Reaction Status Date / Time atorvastatin (From Lipitor) AdvReac Severe Verified 04/05/24 09:08 rosuvastatin (From Crestor) AdvReac Severe Verified 04/05/24 09:08 [facility] Disclaimer: The information contained in this section may have been updated after the patient was seen, as this information can be updated by other users. Medical History Orthopnea Dyspnea Myopathy Anxiety Sleep apnea History of gastroesophageal reflux (GERD) Hypertension CAD (coronary artery disease) Elevated left ventricular end-diastolic pressure (LVEDP) Abnormal EKG Hyperlipidemia Vitamin D deficiency Depression Type 2 diabetes mellitus Surgical History History of colonoscopy History of surgery RIGHT FEMUR TUMOR REMOVED H/O hernia repair Family History Other No significant family history Social History (Updated 05/24/24 @ 11:29 by Alisha Oswald RN) Smoking Status: Never smoker second hand exposure: Yes alcohol intake: never substance use type: denies use current occupational status: employed Travel in the last 8 weeks: None household members: spouse housing: house 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 current occupational exposures/hazards: No caffeine: Yes Have you lived/traveled outside [place] in past 30 days?: No Contact w/someone who lives/traveled outside [place] past 30 days?: No Exposure to someone with infectious disease in past 14 days?: No Do you have a fever (greater than 100.4 F or 38 C)?: No Have you tested positive for COVID-19: No Exposed to someone with COVID-19 in past 14 days?: No Do you have a sore throat?: No Do you have a cough?: No Do you have any weakness?: No Do you have any diarrhea?: No Are you experiencing any unusual bleeding?: No Do you have any muscle aches/pain?: No Do you have any abdominal pain?: No Are you experiencing loss of taste or smell?: No ROS Obtained: Yes All systems reviewed & no additional complaints except as documented Constitutional Constitutional: Denies chills and Denies fever(s) Eyes Eyes: Denies eye discharge ENT Ears, Nose, Mouth, and Throat: Denies dizziness, Denies otalgia and Denies sore throat Cardiovascular Cardiovascular: Denies chest pain Respiratory Respiratory: Denies shortness of breath, Denies chest congestion, Denies cough, Denies stridor and Denies wheezing Gastrointestinal Gastrointestingal: Denies nausea or vomiting Musculoskeletal Musculoskeletal: Reports as per HPI Integumentary/Breasts Skin/Breast: Denies redness, Denies rash and Denies wounds Neurologic Neurologic: Denies dizziness and Denies paresthesias Allergic/Immunologic Allergic/Immunologic: Denies wheezing Physical Exam General General appearance: alert and in no apparent distress Head Head exam: atraumatic, normocephalic and normal inspection Eye Eye exam: Present normal appearance, PERRL and EOMI ENT ENT exam: Present normal exam, normal oropharynx, mucous membranes moist, TM's normal bilaterally and normal external ear exam Neck Neck exam: Present normal inspection, full ROM and trachea midline; Absent meningismus or lymphadenopathy Chest Chest inspection: Present normal inspection and symmetric chest wall rise; Absent tenderness Respiratory Respiratory exam: Present normal lung sounds bilaterally; Absent respiratory distress Cardiovascular Cardiovascular exam: Present regular rate and normal rhythm; Absent JVD Abdominal Exam Abdominal exam: Present soft and normal bowel sounds; Absent distention, tenderness or guarding Extremities Exam Extremities exam: Present normal inspection, full ROM and normal capillary refill; Absent calf tenderness Back Exam Back exam: Present normal inspection; Absent tenderness Neurological Exam Neurological exam: Present alert and oriented X3 Psychiatric Psychiatric exam: Present normal affect and normal mood Skin Skin exam: Present warm, dry, intact and normal color Lymphatic Lymphatic Findings: no adenopathy Medical Decision Making Medical Records Medical records reviewed: No I reviewed the patient's medical records. Screening: Per USPSTF and CDC recommendations, given the prevalence of disease in our region, it is our hospital?s policy to screen for HIV and viral Hepatitis for all patients aged 18 and over and those with ongoing risk factors. [place] Inquiry Pt receiving controlled substance: No Orders (Tests/Meds): ORDERS Category Date Time Status CA venous doppler LE LT Stat Y 11/12/24 16:[address] Data ED CT Reviewed: Yes I have reviewed the patient's CT results US Data US Images: Lower Extremity ED US Reviewed: Yes I have reviewed the patient's US results Preliminary Findings: Normal/NAD (no dvt noted, there is a cyst in the general area of his symptoms though. )
[2024-11-12 18:10] VITALS: BP 155/88; PULSE 74; RESP 19; TEMP 36.8; O2SAT 98
== END 2024-11-12 18:12 | disposition home or self-care (01) ==
PROVIDERS: Emergency Provider Nurse Practitioner Family; PCP Physician Assistant
DX: M71.20 Synovial cyst of popliteal space [Baker], unspecified knee (principal); M79.662 Pain in left lower leg; R60.9 Edema, unspecified
CPT/HCPCS: 93971; 99213; G0381

== ENCOUNTER 2024-12-10 19:18 | Emergency (ER) | payer MEDICARE, SELFPAY ==
[2024-12-10 19:29] VITALS: BP 181/89; PULSE 79; RESP 18; TEMP 38.7; O2SAT 98; BMI 41.4
[2024-12-10 19:32] VITALS: BP 173/102; PULSE 74; RESP 20; O2SAT 96
[2024-12-10 19:42] LABS: Coronavirus 19, PCR Not Detected (NotDetected); Influenza B, PCR Not Detected (NotDetected)
--- NOTE | 2024-12-10 19:43 | HMH.EDGENADL ---
Discharge Plan Disposition Patient Disposition: Home, Self-Care Condition: Good Prescriptions Prescriptions: New guaifenesin 200 mg tablet 200 mg PO TID PRN (Reason: cough) Qty: 20 0RF No Action Ozempic 1 mg/dose (4 mg/3 mL) pen injector 1 mg SQ WEEKLY Qty: 3 2RF insulin glargine [Lantus Solostar U-100 Insulin] 100 unit/mL (3 mL) insulin pen 10 unit SQ HS Qty: 15 2RF Invokana 300 mg tablet 300 mg PO DAILY Qty: 30 2RF Slow Fe 137 mg (45 mg iron) tablet extended release 137 mg PO DAILY Qty: 90 0RF potassium chloride 10 mEq tablet,ER particles/crystals See Rx Instructions .ROUTE .COMPLEX Qty: 90 0RF Dose Instruction: TAKE 1 TABLET BY MOUTH DAILY Rx Instructions: TAKE 1 TABLET BY MOUTH DAILY cholecalciferol (vitamin D3) [Vitamin D3] 25 mcg (1,000 unit) capsule See Rx Instructions .ROUTE .COMPLEX Qty: 30 0RF Dose Instruction: TAKE 1 CAPSULE BY MOUTH DAILY Rx Instructions: TAKE 1 CAPSULE BY MOUTH DAILY amoxicillin 875 mg tablet 875 mg PO BID Qty: 20 0RF Januvia 100 mg tablet See Rx Instructions .ROUTE .COMPLEX Qty: 90 0RF Dose Instruction: TAKE 1 TABLET BY MOUTH EVERY DAY Rx Instructions: TAKE 1 TABLET BY MOUTH EVERY DAY amlodipine 5 mg tablet See Rx Instructions .ROUTE .COMPLEX Qty: 30 0RF Dose Instruction: TAKE 1 TABLET BY MOUTH DAILY Rx Instructions: TAKE 1 TABLET BY MOUTH DAILY ergocalciferol (vitamin D2) 1,250 mcg (50,000 unit) capsule See Rx Instructions .ROUTE .COMPLEX Qty: 12 0RF Dose Instruction: TAKE 1 CAPSULE BY MOUTH WEEKLY Rx Instructions: TAKE 1 CAPSULE BY MOUTH WEEKLY metoprolol succinate 25 mg tablet extended release 24 hr See Rx Instructions .ROUTE .COMPLEX Qty: 30 0RF Dose Instruction: TAKE 1 TABLET BY MOUTH DAILY Rx Instructions: TAKE 1 TABLET BY MOUTH DAILY losartan-hydrochlorothiazide 100-25 mg tablet See Rx Instructions .ROUTE .COMPLEX Qty: 90 0RF Dose Instruction: TAKE 1 TABLET BY MOUTH DAILY FOR HIGH BLOOD PRESSURE Rx Instructions: TAKE 1 TABLET BY MOUTH DAILY FOR HIGH BLOOD PRESSURE venlafaxine [Effexor XR] 75 mg capsule,extended release 24hr See Rx Instructions .ROUTE .COMPLEX Rx Instructions: Take 1 capsule at bedtime for Anxiety aspirin [[place] Aspirin] 81 mg tablet,delayed release (DR/EC) 81 mg PO DAILY Rx Instructions: TAKE 1 TABLET BY MOUTH DAILY pantoprazole [Protonix] 40 mg tablet,delayed release (DR/EC) 40 mg PO DAILY sildenafil (pulm.hypertension) [Revatio] 20 mg tablet See Rx Instructions .ROUTE .COMPLEX Rx Instructions: Take 1 to 2 po as needed; trazodone 50 mg tablet 50 mg PO DAILY Rx Instructions: TAKE 1 TABLET BY MOUTH EVERY NIGHT AT BEDTIME sulfamethoxazole-trimethoprim [Bactrim DS] 800-160 mg Tablet 1 tab PO BID Qty: 20 0RF cephalexin 500 mg capsule 500 mg PO QID Qty: 40 0RF ibuprofen [IBU] 800 mg tablet 800 mg PO Q8HP PRN (Reason: Moderate Pain) Qty: 30 0RF Referrals Follow up/Referrals: Lian Arizmendi PA [Primary Care Provider] - See instructions Activity Restrictions/Add. Instructions Additional Instructions/Restrictions: Today you are positive for influenza A. You are due for out to start any antivirals. Please increase your fluid intake. Rest. It is important that you take acetaminophen or ibuprofen [id number] for fever and symptomatic relief. Please see your primary care physician Friday. Please return to the ED for any worsening of your condition. I sent a cough medication to the pharmacy Clinical Impressions Clinical Impression: Influenza A Cough Qualifiers: Cough type: acute Qualified Code(s): R05.1 - Acute cough Instructions Patient Instructions: Influenza Print Language Print Language: Marshallese Discharge ED Provider: Ramiro Kan General Adult HPI <Mindy Hernandez APRN - Last Filed: 12/10/24 21:36> General Chief complaint: Upper Respiratory Infection Stated complaint: cough, SOA, chills body aches Time Seen by Provider: 12/10/24 19:40 Mode of Arrival: Ambulatory Source of Information: Patient Limitations: No Limitations Description of Symptoms (Recalled from ER Triage Doc. by RN): Pt presents with c/o chills, bodyaches, congestion and productive cough that has green sputum x 2 days History of Present Illness HPI narrative: patient is a 74-year-old male PMHx CAD, HLD, depression, type 2 diabetes, obstructive sleep apnea who presents to the ED for fever, congestion, cough x 3 days. Patient states he took Motrin for his fever when he woke up this morning, has not had any medication since. Denies being around any known sick contacts. Denies any additional medical complaints. Upon initial exam, patient is alert, oriented and cooperative. Related Data Home Medications ?Medication ?Instructions ?Recorded ?Confirmed aspirin 81 mg tablet,delayed 81 mg PO DAILY 05/24/24 05/24/24 release ([place] Aspirin) pantoprazole 40 mg tablet,delayed 40 mg PO DAILY 05/24/24 05/24/24 release (Protonix) sildenafil (pulm.hypertension) 20 See Rx Instructions .Route .COMPLEX 05/24/24 05/24/24 mg tablet (Revatio) trazodone 50 mg tablet 50 mg PO DAILY 05/24/24 05/24/24 venlafaxine 75 mg capsule,extended See Rx Instructions .Route .COMPLEX 05/24/24 05/24/24 release 24 hr (Effexor XR) Previous Rx's ?Medication ?Instructions ?Recorded ferrous sulfate 137 mg (45 mg 137 mg PO DAILY #90 tabs 10/24/23 iron) tablet,extended release (Slow Fe) potassium chloride 10 mEq See Rx Instructions .Route 12/05/23 tablet,extended release(part/cryst) .COMPLEX #90 tabs canagliflozin 300 mg tablet 300 mg PO DAILY #30 tabs 04/05/24 (Invokana) insulin glargine 100 unit/mL (3 10 unit (0.1 mL) SQ HS #15 mL 04/05/24 mL) subcutaneous pen (Lantus Solostar U-100 Insulin) semaglutide 1 mg/dose (4 mg/3 mL) 1 mg (0.75 mL) SQ WEEKLY #3 mL 04/05/24 subcutaneous pen injector (Ozempic) cholecalciferol (vitamin D3) 25 See Rx Instructions .Route 04/19/24 mcg (1,000 unit) capsule (Vitamin .COMPLEX #30 caps D3) amoxicillin 875 mg tablet 875 mg PO BID #20 tabs 06/01/24 sitagliptin phosphate 100 mg See Rx Instructions .Route 06/30/24 tablet (Januvia) .COMPLEX #90 tabs cephalexin 500 mg capsule 500 mg PO QID #40 caps 07/03/24 sulfamethoxazole 800 1 tab PO BID #20 tabs 07/03/24 mg-trimethoprim 160 mg tablet (Bactrim DS) amlodipine 5 mg tablet See Rx Instructions .Route 07/05/24 .COMPLEX #30 tabs ergocalciferol (vitamin D2) 1,250 See Rx Instructions .Route 07/19/24 mcg (50,000 unit) capsule .COMPLEX #12 caps losartan 100 See Rx Instructions .Route 07/28/24 mg-hydrochlorothiazide 25 mg tablet .COMPLEX #90 tabs metoprolol succinate 25 mg See Rx Instructions .Route 07/28/24 tablet,extended release 24 hr .COMPLEX #30 tabs ibuprofen 800 mg tablet (IBU) 800 mg PO Q8HP PRN Moderate Pain 11/12/24 #30 tabs guaifenesin 200 mg tablet 200 mg PO TID PRN cough #20 tabs 12/10/24 Allergies Allergy/AdvReac Type Severity Reaction Status Date / Time atorvastatin (From Lipitor) AdvReac Severe Verified 04/05/24 09:08 rosuvastatin (From Crestor) AdvReac Severe Verified 04/05/24 09:08 [facility] <Mindy Hernandez APRN - Last Filed: 12/10/24 21:36> [facility] Disclaimer: The information contained in this section may have been updated after the patient was seen, as this information can be updated by other users. Medical History Orthopnea Dyspnea Myopathy Anxiety Sleep apnea History of gastroesophageal reflux (GERD) Hypertension CAD (coronary artery disease) Elevated left ventricular end-diastolic pressure (LVEDP) Abnormal EKG Hyperlipidemia Vitamin D deficiency Depression Type 2 diabetes mellitus Surgical History History of colonoscopy History of surgery RIGHT FEMUR TUMOR REMOVED H/O hernia repair Family History Other No significant family history Social History (Updated 05/24/24 @ 11:29 by Alisha Oswald RN) Smoking Status: Never smoker second hand exposure: Yes alcohol intake: never substance use type: denies use current occupational status: employed Travel in the last 8 weeks: None household members: spouse housing: house 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 current occupational exposures/hazards: No caffeine: Yes Have you lived/traveled outside [place] in past 30 days?: No Contact w/someone who lives/traveled outside US past 30 days?: No Exposure to someone with infectious disease in past 14 days?: No Do you have a fever (greater than 100.4 F or 38 C)?: No Have you tested positive for COVID-19: No Exposed to someone with COVID-19 in past 14 days?: No Do you have a sore throat?: No Do you have a cough?: Yes Do you have any weakness?: No Do you have any diarrhea?: No Are you experiencing any unusual bleeding?: No Do you have any muscle aches/pain?: Yes Do you have any abdominal pain?: No Are you experiencing loss of taste or smell?: No Other Medical History Have you received the Flu Vaccine for this season: Yes Have you received the Pneumonia Vaccine: No <Mindy Hernandez APRN - Last Filed: 12/10/24 21:36> ROS Obtained: Yes Systems reviewed as appropriate & no additional complaints except as documented Physical Exam <Mindy Hernandez APRN - Last Filed: 12/10/24 21:36> General General appearance: alert and in no apparent distress Comment: obese Head Head exam: atraumatic and normocephalic Eye Eye exam: Present normal appearance and PERRL ENT ENT exam: Present normal exam Neck Neck exam: Present normal inspection Chest Chest inspection: Present normal inspection and symmetric chest wall rise; Absent tenderness Respiratory Respiratory exam: Present normal lung sounds bilaterally Cardiovascular Cardiovascular exam: Present regular rate Abdominal Exam Abdominal exam: Present soft and normal bowel sounds; Absent tenderness Extremities Exam Extremities exam: Present normal inspection and full ROM Back Exam Back exam: Present normal inspection and full ROM Neurological Exam Neurological exam: Present alert and oriented X3 Psychiatric Psychiatric exam: Present normal affect and normal mood Skin Skin exam: Present warm and dry Medical Decision Making <Mindy Hernandez APRN - Last Filed: 12/10/24 21:36> Medical Records Screening: Per USPSTF and CDC recommendations, given the prevalence of disease in our region, it is our hospital?s policy to screen for HIV and viral Hepatitis for all patients aged 18 and over and those with ongoing risk factors. Tobin Inquiry Pt receiving controlled substance: No Tobin was queried for this patient: No Vital Signs: 12/10/24 19:29 12/10/24 19:32 12/10/24 21:40 Temperature 101.6 F H 98.2 F Temperature Source Oral Pulse Rate 74 87 Pulse Rate [Right] 79 Respiratory Rate 18 20 20 Blood Pressure 173/102 H 150/87 H Blood Pressure [Right Arm] 181/89 H Blood Pressure Mean [Right Arm] 119 Blood Pressure Source [Right Arm] Automatic Cuff Blood Pressure Position [Right Arm] Sitting 02 Sat by Pulse Oximetry 98 96 Oxygen Delivery Method Room Air Room Air Room Air Lab Data Lab Results 12/10/24 19:33: SARS-CoV-2 (PCR) Not detected, Influenza A Untype (PCR) Detected A, Influenza Type B (PCR) Not detected Orders (Tests/Meds): ED MEDICATIONS Discontinued Medications Generic Name Dose Route Start Last Admin Trade Name Freq PRN Reason Stop Dose Admin Guaifenesin 200 mg 12/10/24 19:43 12/10/24 20:00 Guaifenesin 200mg/10ml Syrup Udc PO 12/10/24 19:44 200 mg ONCE ONE Administration ORDERS Category Date Time Status CXR --portable [XR chest portable] Stat Exams 12/10/24 20:23 Completed Rapid PCR Covid and Flu A/B Stat Lab 12/10/24 19:33 Completed Medical Decision Narrative: In summary, patient is a 74-year-old male PMHx CAD, HLD, depression, type 2 diabetes, obstructive sleep apnea who presents to the ED for fever, congestion, cough x 3 days. Patient states he took Motrin for his fever when he woke up this morning, has not had any medication since. Denies being around any known sick contacts. Denies any additional medical complaints. Upon initial exam, patient is alert, oriented and cooperative. Patient is hemodynamically stable. Physical exam remarkable for obesity and cough. Denies headache, visual disturbances, posterior neck pain, chest pain, shortness of breath, abdominal pain, nausea, vomiting, dysuria. Differential diagnosis includes flu, COVID, pneumonia, pneumothorax, among others Initial workup will be conducted with respiratory swab & cxr Initial inventions include ibuprofen for fever. Initial workup reviewed by me. Final read of the chest x-ray unremarkable for any acute cardiopulmonary process. Upon repeat evaluation, patient had an acceptable resolution of symptoms. They were ambulatory in the ED. Able to tolerate PO. Given this, patient is safe to be discharged home at this time. Discussed increase fluid intake, take acetaminophen and ibuprofen [id number] for symptomatic relief. Patient will need to follow-up with his PCP within 1 week. He has had symptoms for too many days to start antivirals at this time. We discussed very strict return precautions to the ED. Sent a prescription for guaifenesin to the pharmacy for cough. <Ramiro Kan MD - Last Filed: 12/11/24 00:00> Vital Signs: 12/10/24 19:29 12/10/24 19:32 12/10/24 21:40 Temperature 101.6 F H 98.2 F Temperature Source Oral Pulse Rate 74 87 Pulse Rate [Right] 79 Respiratory Rate 18 20 20 Blood Pressure 173/102 H 150/87 H Blood Pressure [Right Arm] 181/89 H Blood Pressure Mean [Right Arm] 119 Blood Pressure Source [Right Arm] Automatic Cuff Blood Pressure Position [Right Arm] Sitting 02 Sat by Pulse Oximetry 98 96 Oxygen Delivery Method Room Air Room Air Room Air Lab Data Lab Results 12/10/24 19:33: SARS-CoV-2 (PCR) Not detected, Influenza A Untype (PCR) Detected A, Influenza Type B (PCR) Not detected Orders (Tests/Meds): ED MEDICATIONS Discontinued Medications Generic Name Dose Route Start Last Admin Trade Name Freq PRN Reason Stop Dose Admin Guaifenesin 200 mg 12/10/24 19:43 12/10/24 20:00 Guaifenesin 200mg/10ml Syrup Udc PO 12/10/24 19:44 200 mg ONCE ONE Administration ORDERS Category Date Time Status CXR --portable [XR chest portable] Stat Exams 12/10/24 20:23 Completed Rapid PCR Covid and Flu A/B Stat Lab 12/10/24 19:33 Completed Medical Decision Narrative: In summary, patient is a 74-year-old male PMHx CAD, HLD, depression, type 2 diabetes, obstructive sleep apnea who presents to the ED for fever, congestion, cough x 3 days. Patient states he took Motrin for his fever when he woke up this morning, has not had any medication since. Denies being around any known sick contacts. Denies any additional medical complaints. Upon initial exam, patient is alert, oriented and cooperative. Patient is hemodynamically stable. Physical exam remarkable for obesity and cough. Denies headache, visual disturbances, posterior neck pain, chest pain, shortness of breath, abdominal pain, nausea, vomiting, dysuria. Differential diagnosis includes flu, COVID, pneumonia, pneumothorax, among others Initial workup will be conducted with respiratory swab & cxr Initial inventions include ibuprofen for fever. Initial workup reviewed by me. Final read of the chest x-ray unremarkable for any acute cardiopulmonary process. Upon repeat evaluation, patient had an acceptable resolution of symptoms. They were ambulatory in the ED. Able to tolerate PO. Given this, patient is safe to be discharged home at this time. Discussed increase fluid intake, take acetaminophen and ibuprofen [id number] for symptomatic relief. Patient will need to follow-up with his PCP within 1 week. He has had symptoms for too many days to start antivirals at this time. We discussed very strict return precautions to the ED. Sent a prescription for guaifenesin to the pharmacy for cough. I was consulted by the RADHIKA, and we discussed the complexity of the problems being addressed. I approved the treatment and management plan for this patient's care in the Emergency Department, thus performing a substantive portion of the medical decision making. Ramiro Kan MD Critical Care <Mindy Hernandez, TRACK OILER - Last Filed: 12/10/24 21:36> Critical Care Time Critical Care Time: No
[2024-12-10] MEDS: guaiFENesin 200MG/10ML SYRUP UDC 200 MG PO (20:00)
--- NOTE | 2024-12-10 20:23 | XR_ITS ---
PROCEDURE INFORMATION: Exam: XR Chest Exam date and time: 12/10/2024 8:52 PM Age: 74 years old Clinical indication: Cough and shortness of breath; Additional info: SOA TECHNIQUE: Imaging protocol: Radiologic exam of the chest. Views: 1 view. COMPARISON: CR XR CHEST PORTABLE 10/17/2023 11:08 AM FINDINGS: Lungs: Unremarkable. No consolidation. Pleural spaces: Unremarkable. No pleural effusion. No pneumothorax. Heart/Mediastinum: Unremarkable. No cardiomegaly. Bones/joints: Moderate degenerative changes in the spine and shoulders. No acute fracture IMPRESSION: No acute disease
[2024-12-10 20:26] LABS: Influenza A, PCR Detected (NotDetected)
[2024-12-10 21:40] VITALS: BP 150/87; PULSE 87; RESP 20; TEMP 36.8; O2SAT 99
== END 2024-12-10 21:42 | disposition home or self-care (01) ==
PROVIDERS: Emergency Provider Emergency Medicine; PCP Physician Assistant
DX: J10.1 Influenza due to other identified influenza virus with other respiratory manifestations (principal); R05.1 Acute cough; R06.02 Shortness of breath; R50.9 Fever, unspecified; R09.81 Nasal congestion; R05.9 Cough, unspecified; M79.10 Myalgia, unspecified site; R09.3 Abnormal sputum
CPT/HCPCS: 71045; 87636; 99283

== ENCOUNTER 2025-01-14 06:25 | Day surgery (SDC) | payer MEDICARE, SELFPAY ==
[2025-01-10 15:29] VITALS: BMI 41.0
[2025-01-14 06:36] VITALS: BP 166/97; PULSE 47; RESP 18; TEMP 36.1; O2SAT 98
--- NOTE | 2025-01-14 06:44 | P.HP_ITS ---
HPI HPI HPI: Patient presents for follow-up colonoscopy. Colonoscopy done on 10/17/2023 revealed polypoid mass and sharp angulation at approximately 45 cm in the sigmoid colon. At that time he was noted to have poor colonic preparation and initially upon advancement of the colonoscope consideration was being given for possible /termination of the procedure due to the poor prep. However there was noted to be a polypoid mass at the sigmoid colon as stated. This was removed in an aggressive piecemeal fashion using a large 30 mm hot snare repeatedly followed by 13 mm hot snare and 9 mm cold snare it appeared as though essentially the lesion was removed in its entirety but there was some mucosal edema. The area was marked with Ijeoma ink. Pathology revealed focal surface high-grade dysplasia in the background of tubulovillous adenoma with no invasive carcinoma. I had him undergo a CT scan which revealed findings of multiple colonic diverticula with some mild stranding adjacent to the distal sigmoid colon. There was a possible noncalcified stone in the gallbladder. There is also 7.2 cm distal esophageal diverticulum. There is also small bilateral renal cysts and a lesion in the lower pole of the left kidney which was not compatible with a simple cyst and a renal mass protocol CT recommended. He underwent planned repeat colonoscopy on 02/06/2024. However the preparation was extremely poor and there was liquid opaque stool throughout the colon coating the kelley of the colon with too numerous to count hard stool balls in the descending colon. The previously marked area near 50 cm from the anal verge was identified and there was noted to be some residual polypoid tissue which was removed using hot snare. Tissue was unable to be retrieved due to the large amount of stool present. He underwent yet another repeat colonoscopy on 05/24/2024. Colonic preparation was fair with a large amount of liquid particulate stool throughout the colon which was able to be ultimately cleared with irrigation and suctioning. There was noted to be significant pandiverticulosis. There was a sessile tubular adenoma in the ascending colon. Previous polypectomy site was noted and there was possibly some recurrent polypoid tissue which was removed in a piecemeal fashion using hot snare. Recommendation was for repeat colonoscopy in 4 to 6 months after his colonoscopy done on 05/24/2024 and if recurrent consideration for referral for laparoscopic sigmoid colon resection. Patient states that for his perforation he had 3 capfuls of MiraLAX and 3 bottles of magnesium citrate. . PFSH [facility] Disclaimer: The information contained in this section may have been updated after the patient was seen, as this information can be updated by other users. Medical History Orthopnea Dyspnea Myopathy Anxiety Sleep apnea History of gastroesophageal reflux (GERD) Hypertension CAD (coronary artery disease) Elevated left ventricular end-diastolic pressure (LVEDP) Abnormal EKG Hyperlipidemia Vitamin D deficiency Depression Type 2 diabetes mellitus Surgical History History of colonoscopy History of surgery RIGHT FEMUR TUMOR REMOVED H/O hernia repair Family History Other No significant family history Social History (Updated 05/24/24 @ 11:29 by Alisha Oswald RN) Smoking Status: Never smoker second hand exposure: Yes alcohol intake: never substance use type: denies use current occupational status: employed Travel in the last 8 weeks: None household members: spouse housing: house 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 current occupational exposures/hazards: No caffeine: Yes Other Medical History Have you received the Flu Vaccine for this season: Yes Have you received the Pneumonia Vaccine: No Meds Home Medications and Allergies Home Medications ?Medication ?Instructions ?Recorded ?Confirmed ?Type ferrous sulfate 137 mg (45 mg 137 mg PO DAILY #90 tabs 10/24/23 01/14/25 Rx iron) tablet,extended release (Slow Fe) potassium chloride 10 mEq See Rx Instructions .Route 12/05/23 01/14/25 Rx tablet,extended release(part/cryst) .COMPLEX #90 tabs cholecalciferol (vitamin D3) 25 See Rx Instructions .Route 04/19/24 01/14/25 Rx mcg (1,000 unit) capsule (Vitamin .COMPLEX #30 caps D3) aspirin 81 mg tablet,delayed 81 mg PO DAILY 05/24/24 01/14/25 History release ([place] Aspirin) sildenafil (pulm.hypertension) 20 See Rx Instructions .Route .COMPLEX 05/24/24 01/14/25 History mg tablet (Revatio) trazodone 50 mg tablet 50 mg PO DAILY 05/24/24 01/14/25 History venlafaxine 75 mg capsule,extended See Rx Instructions .Route .COMPLEX 05/24/24 01/14/25 History release 24 hr (Effexor XR) amlodipine 5 mg tablet See Rx Instructions .Route 07/05/24 01/14/25 Rx .COMPLEX #30 tabs ergocalciferol (vitamin D2) 1,250 See Rx Instructions .Route 07/19/24 01/14/25 Rx mcg (50,000 unit) capsule .COMPLEX #12 caps losartan 100 See Rx Instructions .Route 07/28/24 01/14/25 Rx mg-hydrochlorothiazide 25 mg tablet .COMPLEX #90 tabs metoprolol succinate 25 mg See Rx Instructions .Route 07/28/24 01/14/25 Rx tablet,extended release 24 hr .COMPLEX #30 tabs dapagliflozin propanediol 10 mg 10 mg PO DAILY 01/10/25 01/14/25 History tablet (Farxiga) clonidine HCl 0.1 mg tablet 0.1 mg PO BID 01/14/25 01/14/25 History hydralazine 25 mg tablet 25 mg PO BID 01/14/25 01/14/25 History omeprazole 10 mg capsule,delayed 0 mg PO DAILY 01/14/25 01/14/25 History release New Prescriptions to Start Prescriptions: Allergies Allergy/AdvReac Type Severity Reaction Status Date / Time atorvastatin (From Lipitor) AdvReac Severe Unknown Verified 01/14/25 06:45 allergy reaction rosuvastatin (From Crestor) AdvReac Severe Unknown Verified 01/14/25 06:45 allergy reaction Exam Data for Last 24 hours I & O for Last 24 hours: Intake & Output 01/11/25 01/12/25 01/13/25 01/14/25 11:59 11:59 11:59 11:59 Weight 294 lb Constitutional Constitutional: no acute distress *Routine HEENT Exam Head: Present normocephalic Eye: Present EOMI and PERRL ENT: Present mucous membranes moist *Routine Neck Exam Neck: Present supple; Absent lymphadenopathy *Routine Respiratory Exam Respiratory: Present CTA bilaterally *Routine Cardiovascular Exam Cardiovascular: Present RRR *Routine Abdominal Exam Abdominal: Present soft and normoactive bowel sounds; Absent tenderness *Routine Rectal Exam Rectal:: deferred *Routine Genitalia Exam Genitalia:: deferred *Routine Extremities Exam Extremities: Absent cyanosis, clubbing or edema *Routine Skin Exam Skin: Present warm; Absent rash *Routine Neurological Exam Neurological: Present alert and oriented X3 Assessment and Plan *Assessment and plan (1) Tubulovillous adenoma of colon: Status: Acute Category: Medical Code(s): D12.6 - Benign neoplasm of colon, unspecified Plan Proceed with repeat colonoscopy.
[2025-01-14] MEDS: LACTATED RINGERS 1000ML 1,000 ML 50 ML IV (07:05)
--- NOTE | 2025-01-14 07:10 | P.PNANES_ITS ---
[facility] Disclaimer: The information contained in this section may have been updated after the patient was seen, as this information can be updated by other users. Medical History Orthopnea Dyspnea Myopathy Anxiety Sleep apnea History of gastroesophageal reflux (GERD) Hypertension CAD (coronary artery disease) Elevated left ventricular end-diastolic pressure (LVEDP) Abnormal EKG Hyperlipidemia Vitamin D deficiency Depression Type 2 diabetes mellitus Surgical History History of colonoscopy History of surgery H/O hernia repair Family History Other No significant family history Social History Smoking Status: Never smoker second hand exposure: Yes alcohol intake: never substance use type: denies use current occupational status: employed Travel in the last 8 weeks: None household members: spouse housing: house 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 current occupational exposures/hazards: No caffeine: Yes Have you lived/traveled outside [place] in past 30 days?: No Contact w/someone who lives/traveled outside [place] past 30 days?: No Exposure to someone with infectious disease in past 14 days?: No Do you have a fever (greater than 100.4 F or 38 C)?: No Have you tested positive for COVID-19: Yes Exposed to someone with COVID-19 in past 14 days?: No Do you have a sore throat?: No Do you have a cough?: No Do you have any weakness?: No Are you experiencing any nausea/vomitting?: No Do you have any diarrhea?: No Are you experiencing any unusual bleeding?: No Do you have any muscle aches/pain?: No Do you have any abdominal pain?: No Are you experiencing loss of taste or smell?: No [facility] Anesthesia Checklist Patient Identification Patient Identification: Arm Band and Verbal (Name & ) Structural Data Admitted From: Home Planned Operative Procedure/s: Colonscopy Consent for Planned Operative Procedure(s) Verified: Yes Verified Documents: Surgical Consent and History and Physical NPO Status Verified Time NPO: 00:00 Additional verifications Anesthesia Reactions: No Airway Assessment Mallampati Score:: Class II Neurological Assessment Level of Consciousness: Awake, Alert and Appropriate Hx Seizures: No Numbness or tingling in extremities: No Anesthesia Plan Anesthesia Risk discussed: Yes Anesthesia Plan: Verified ASA Class: II Anesthesia Type: MAC
[2025-01-14 07:14] VITALS: O2SAT 98
--- NOTE | 2025-01-14 07:32 | P.PCN_ITS ---
Procedure: Date: 01/14/25 Patient Date of :: 1950 Procedure Performed:: Aborted colonoscopy . Indications:: Patient presents for follow-up colonoscopy. Colonoscopy done on 10/17/2023 revealed polypoid mass and sharp angulation at approximately 45 cm in the sigmoid colon. At that time he was noted to have poor colonic preparation and initially upon advancement of the colonoscope consideration was being given for possible /termination of the procedure due to the poor prep. However there was noted to be a polypoid mass at the sigmoid colon as stated. This was removed in an aggressive piecemeal fashion using a large 30 mm hot snare repeatedly followed by 13 mm hot snare and 9 mm cold snare it appeared as though essentially the lesion was removed in its entirety but there was some mucosal edema. The area was marked with Ijeoma ink. Pathology revealed focal surface high-grade dysplasia in the background of tubulovillous adenoma with no invasive carcinoma. I had him undergo a CT scan which revealed findings of multiple colonic diverticula with some mild stranding adjacent to the distal sigmoid colon. There was a possible noncalcified stone in the gallbladder. There is also 7.2 cm distal esophageal diverticulum. There is also small bilateral renal cysts and a lesion in the lower pole of the left kidney which was not compatible with a simple cyst and a renal mass protocol CT recommended. He underwent planned repeat colonoscopy on 02/06/2024. However the preparation was extremely poor and there was liquid opaque stool throughout the colon coating the kelley of the colon with too numerous to count hard stool balls in the descending colon. The previously marked area near 50 cm from the anal verge was identified and there was noted to be some residual polypoid tissue which was removed using hot snare. Tissue was unable to be retrieved due to the large amount of stool present. He underwent yet another repeat colonoscopy on 05/24/2024. Colonic preparation was fair with a large amount of liquid particulate stool throughout the colon which was able to be ultimately cleared with irrigation and suctioning. There was noted to be significant pandiverticulosis. There was a sessile tubular adenoma in the ascending colon. Previous polypectomy site was noted and there was possibly some recurrent polypoid tissue which was removed in a piecemeal fashion using hot snare. Recommendation was for repeat colonoscopy in 4 to 6 months after his colonoscopy done on 05/24/2024 and if recurrent consideration for referral for laparoscopic sigmoid colon resection. Patient s tates that for his perforation he had 3 capfuls of MiraLAX and 3 bottles of magnesium citrate. . Performing Provider:: Geoff Tovar MD Referring Provider:: Lian Arizmendi . Sedation:: MAC sedation Procedure:: Patient history was obtained and appropriate physical examination was performed. Patient's medications and allergies were reviewed. Informed consent was obtained after explaining the benefits, alternatives, and risks of the procedure including, but not limited to, bleeding, perforation, missed lesions, and adverse reaction to anesthesia medications. Patient was transported to endoscopy procedure room. Patient was connected to monitoring devices. Throughout the procedure the patient's blood pressure, pulse, and oxygen saturations were monitored continuously. Patient identification and planned procedure were verified by the staff. Patient was positioned in lateral decubitus position. Digital anorectal exam was performed. Variable stiffness Olympus colonoscope was inserted and advanced under direct visualization. Adequacy of the colonic preparation was noted. Colonic preparation was fair. There was noted to be significant diverticulosis. Once the colonoscope was advanced to near the hepatic flexure the patient began vomiting. Airway was protected and his head was elevated. Anesthesia recommended intubation if the procedure was to continue. It was felt that the potential risk of emergent general anesthesia would outweigh the benefit, particularly given the fair preparation. Therefore the colonoscope was withdrawn completely as the procedure was terminated. . Findings:: Significant pandiverticulosis Fair colonic preparation Recommendations:: Will need to be rescheduled with repeat colonoscopy with thorough prep and possibly general anesthesia in a controlled fashion. He may benefit from gastroenterology involvement. Complications:: None immediate Estimated blood obtained (mL): 0 Colonoscopy Component Colonoscopy Component Was a colonoscopy performed during today's procedure?: No
[2025-01-14 07:40] VITALS: BP 146/80; PULSE 55; RESP 18; TEMP 36.4; O2SAT 98
[2025-01-14 07:50] VITALS: BP 151/63; PULSE 54; RESP 18; TEMP 36.4; O2SAT 98
[2025-01-14 08:00] VITALS: BP 151/67; PULSE 57; RESP 18; TEMP 36.4; O2SAT 99
[2025-01-14 08:10] VITALS: BP 148/66; PULSE 52; RESP 18; TEMP 36.4; O2SAT 98
[2025-01-17 06:08] LABS: POC Glucose,Bedside 222 (70-110)
== END 2025-01-14 08:10 | disposition home or self-care (01) ==
PROVIDERS: PCP Physician Assistant; Visit Provider Surgery
PROC: 0DJD8ZZ Inspection of Lower Intestinal Tract, Via Natural or Artificial Opening Endoscopic (ICD-10-PCS; CPT 45378; principal; 2025-01-14 07:30)
DX: K57.30 Diverticulosis of large intestine without perforation or abscess without bleeding (principal); D12.6 Benign neoplasm of colon, unspecified; Z53.8 Procedure and treatment not carried out for other reasons; E11.9 Type 2 diabetes mellitus without complications
CPT/HCPCS: 45378; 82962; J7120